=== PATIENT | female | born 1975 | race Caucasian/White ===

== ENCOUNTER → 2018-12-01 | Outpatient (CLI) | payer OTHER ==
--- NOTE | 2018-12-01 18:06 | US ---
EXAMINATION TYPE: US transvaginal DATE OF EXAM: 12/01/2018 COMPARISON: NONE CLINICAL HISTORY: 43-year-old female N94.6 DYSMENORRHEA. Heavy, painful cycles for the past 3 months, 4, para 4, history of 3 c-sections and tubal ligation TECHNIQUE: Transvaginal exam only per ordering physician Date of LMP: 11/24/2018 FINDINGS: EXAM MEASUREMENTS: Uterus: 9.2 x 6.6 x 7.5 cm Endometrial Stripe: 0.7 cm Right Ovary: not seen Left Ovary: 4.5 x 2.5 x 3.3 cm 1. Uterus: retroverted, heterogeneous 2. Endometrium: Mild to moderate fluid within the uterine cavity the stripes by 9 mm. 3. Right Ovary: not seen 4. Left Ovary: 2.4 x 1.9 x 2.7cm cyst 5. Bilateral Adnexa: wnl 6. Posterior cul-de-sac: wnl IMPRESSION: 1. Retroverted uterus. 2. Mild to moderate fluid within the uterine cavity, possible hemorrhagic fluid related to menses. Co nsider follow-up in 6-8 weeks to reassess. 3. Right ovary could not be visualized. 2.7 cm dominant follicle/functional cyst in the left ovary.
== END | disposition home or self-care (01) ==
LOC: RADUSWWP 12:59
PROVIDERS: ATTEND Obstetrics & Gynecology
DX: N83.202 Unspecified ovarian cyst, left side (principal); N85.4 Malposition of uterus; N85.8 Other specified noninflammatory disorders of uterus
CPT/HCPCS: 76830

== ENCOUNTER → 2018-12-16 | Outpatient (CLI) | payer OTHER ==
--- NOTE | 2018-12-16 12:10 | MM ---
Reason for exam: clinical finding. Last mammogram was performed 9 years and 9 months ago. Indicated problem(s): lump or thickening in the right breast. Physical Findings: Nurse Summary: palpable medial upper 0.5 x 0.5cm, non-tender (nurse ts). MG Diagnostic Mammo w CAD ARMANI Bilateral CC and MLO view(s) were taken. Prior study comparison: March 07, 2009, bilateral diagnostic digital mammog. The breast tissue is heterogeneously dense. This may lower the sensitivity of mammography. No suspicious abnormality. No significant new findings when compared with previous films. These results were verbally communicated with the patient and result sheet given to the patient on 12/16/18. ASSESSMENT: Negative, BI-RAD 1 RECOMMENDATION: Routine screening mammogram of both breasts in 1 year.
--- NOTE | 2018-12-16 12:12 | USB ---
Reason for exam: clinical finding. US Breast RT Right complete breast ultrasound includes all four quadrants, the retroareolar region and axilla. Finding demonstrates a 9 x 5 x 6mm oval, cystic lesion at 4 o'clock, a 11 x 3 x 7mm lobular, cystic lesion at 7 o'clock, a 6 x 4mm oval, cystic lesion at the posterior nipple and a 8 x 5 x 8mm mixed, hypoechoic lesion at middle sternum at BB that appears as sebaceous cyst. These results were verbally communicated with the patient and result sheet given to the patient on 12/16/18. ASSESSMENT: Benign, BI-RAD 2 RECOMMENDATION: Routine screening mammogram of both breasts in 1 year. Dermatology consult regarding sebaceous cyst excision recommended for sternal mass deep to the skin.
== END ==
LOC: RADMAMWWP 07:38
PROVIDERS: ATTEND Family Medicine
DX: N63.10 Unspecified lump in the right breast, unspecified quadrant (principal)
CPT/HCPCS: 77066

== ENCOUNTER → 2019-03-23 | Outpatient (CLI) | payer OTHER ==
[2019-03-23 10:36] LABS: Basophils % (A) 1 %; Eosinophils # (A) 0.1 k/uL (0-0.7); Eosinophils % (A) 1 %; HCT 46.3 % (34.0-46.0); HGB 15.5 gm/dL (11.4-16.0); Lymphocytes % (A) 22 %; MCH 30.7 pg (25.0-35.0); MCHC 33.5 g/dL (31.0-37.0); MCV 91.4 fL (80.0-100.0); Mean Platelet Volume 7.2; Monocytes # (A) 0.3 k/uL (0-1.0); Monocytes % (A) 7 %; Neutrophils % (A) 68 %; Platelet Count 273 k/uL (150-450); RBC 5.07 m/uL (3.80-5.40); RDW 13.1 % (11.5-15.5); WBC 4.4 k/uL (3.8-10.6)
[2019-03-23 10:48] LABS: ALT 31 U/L (9-52); AST 21 U/L (14-36); African American GFR (CKD) >90 (>60 ml/min/1.73 sqM); Alkaline Phosphatase 45 U/L (38-126); Anion Gap 8 mmol/L; Blood Urea Nitrogen 11 mg/dL (7-17); Calcium 9.1 mg/dL (8.4-10.2); Carbon Dioxide 26 mmol/L (22-30); Chloride 107 mmol/L (98-107); Glucose 92 mg/dL (74-99); Sodium 141 mmol/L (137-145); Total Bilirubin 0.6 mg/dL (0.2-1.3); Total Protein 6.5 g/dL (6.3-8.2)
--- NOTE | 2019-03-23 10:56 | US ---
EXAMINATION TYPE: US venous doppler duplex LE RT DATE OF EXAM: 03/23/2019 10:40 AM COMPARISON: NONE CLINICAL HISTORY: R06.02 SOB R05 cough. Muscle cramps right lower leg for 2 weeks SIDE PERFORMED: right TECHNIQUE: The lower extremity deep venous system is examined utilizing real time linear array sonog jessica with graded compression, doppler sonography and color-flow sonography. VESSELS IMAGED: External Iliac Vein (EIV) Common Femoral Vein Deep Femoral Vein Greater Saphenous Vein * Femoral Vein Popliteal Vein Small Saphenous Vein * Proximal Calf Veins (* superficial vessels) Right Leg: No evidence of DVT as visualized Grayscale, color doppler, spectral doppler imaging performed of the deep veins of the right lower ext remity. There is normal flow, compressibility, vascular waveforms. IMPRESSION: No ultrasound evidence for acute DVT in the right lower extremity.
--- NOTE | 2019-03-23 11:04 | CT ---
EXAMINATION TYPE: CT angio chest DATE OF EXAM: 03/23/2019 COMPARISON: NONE HISTORY: cough and shortness of breath CT DLP: 439.8 mGycm. Automated Exposure Control for Dose Reduction was Utilized. CONTRAST: CTA scan of the thorax is performed with IV Contrast, patient injected with 100 mL of Isovue 370, pul monary embolism protocol. MIP Images are created on CT scanner and reviewed. FINDINGS: LUNGS: The lungs are grossly clear, there is no concerning parenchymal mass or nodule identified. T here is no pleural effusion or pneumothorax seen. The tracheobronchial tree is patent. Mild parasept al emphysematous changes of the lungs. Scattered areas of subsegmental atelectasis, predominantly on the left. MEDIASTINUM: There is satisfactory enhancement of the pulmonary artery and its branches, there is no CT evidence for pulmonary embolism. There are no greater than 1 cm hilar or mediastinal lymph nodes. Heart is enlarged without pericardial effusion. Mild coronary artery calcifications are evident. No evidence of thoracic aortic dissection or aneurysm. OTHER: Pneumobilia is seen with cholecystectomy. Correlate for any recent ERCP or recent cholecystect farhana. The liver is elongated extending into the left upper quadrant. Splenule is seen near the splenic hilum. Minimal multilevel degenerative changes of the spine. IMPRESSION: 1. No evidence of pulmonary embolus. No evidence of thoracic aortic dissection or aneurysm. 2. Pneumobilia. Correlate for recent ERCP or recent cholecystectomy. 3. Scattered areas of subsegmental atelectasis.
== END | disposition home or self-care (01) ==
LOC: RADCTMAIN 09:21
PROVIDERS: ATTEND Nurse Practitioner Family
DX: J98.11 Atelectasis (principal); M79.661 Pain in right lower leg
CPT/HCPCS: 80053; 84443; 85025; 93971; 71275; 36415; Q9967

== ENCOUNTER 2019-05-02 15:01 | Emergency (ER) | payer OTHER ==
[2019-05-02 15:22] VITALS: BP 126/84; PULSE 86; RESP 18; TEMP 97.9
[2019-05-02] MEDS ORDERED: KETOROLAC 30 MG/ML 1 ML VIAL IM STA (15:58)
[2019-05-02] MEDS ORDERED: LIDOCAINE 1% INJ 10MG/ML (20 ML MDV) SQ ONE (15:58)
[2019-05-02] MEDS ORDERED: SODIUM CHLORIDE 0.9% IRRIG 1,000 ML BTL IRRIGATION ONE (15:59)
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
== END 2019-05-02 18:12 | disposition home or self-care (01) ==
LOC: EC 15:01
DX: S91.312A Laceration without foreign body, left foot, initial encounter (principal); W26.9XXA Contact with unspecified sharp object(s), initial encounter
CPT/HCPCS: 99282; 12002; 96372; J2001; J1885

== ENCOUNTER → 2019-05-26 | Outpatient (CLI) | payer OTHER | LOC: CPPFTMAIN 12:25 | PROVIDERS: ATTEND Family Medicine | DX: J45.20 Mild intermittent asthma, uncomplicated (principal); R05 Cough | CPT/HCPCS: 94060; 94726; 94729 ==

== ENCOUNTER → 2019-10-08 | Outpatient (CLI) | payer OTHER ==
--- NOTE | 2019-10-08 13:01 | XR ---
EXAMINATION TYPE: XR chest 2V DATE OF EXAM: 10/08/2019 COMPARISON: Prior chest x-ray 12/07/2010 HISTORY: Acute bronchitis TECHNIQUE: Frontal and lateral views of the chest are obtained. FINDINGS: There is no focal air space opacity, pleural effusion, or pneumothorax seen. The cardiac silhouette size is within normal limits. The osseous structures are intact. There is bronchial wall thickening. IMPRESSION: Bronchial wall thickening in keeping with patient's history of bronchitis or possible re active airways disease.
== END | disposition home or self-care (01) ==
LOC: RADXRMAIN 10:43
PROVIDERS: ATTEND Family Medicine
DX: J20.9 Acute bronchitis, unspecified (principal)
CPT/HCPCS: 71046

== ENCOUNTER 2020-04-12 07:53 | Emergency (ER) | payer OTHER ==
[2020-04-12 07:58] VITALS: RESP 18; TEMP 98.3
[2020-04-12] MEDS ORDERED: cefTRIAXone 1,000 MG VIAL (IM USE) IM STA (08:19)
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
[2020-04-12] MEDS ORDERED: LIDOCAINE 1% INJ 10MG/ML (20 ML MDV) SQ ONE (08:24)
[2020-04-12 08:33] VITALS: BP 111/75; PULSE 68
== END 2020-04-12 08:29 | disposition home or self-care (01) ==
LOC: EC 07:53
DX: T24.031A Burn of unspecified degree of right lower leg, initial encounter (principal); T25.011A Burn of unspecified degree of right ankle, initial encounter; T31.0 Burns involving less than 10% of body surface; L03.115 Cellulitis of right lower limb; Z86.14 Personal history of Methicillin resistant Staphylococcus aureus infection; X16.XXXA Contact with hot heating appliances, radiators and pipes, initial encounter; Y92.89 Other specified places as the place of occurrence of the external cause
CPT/HCPCS: 99283; 96372 ×2; J2001; J0696

== ENCOUNTER 2020-04-20 15:31 | Emergency (ER) | payer OTHER ==
[2020-04-20 15:53] VITALS: BP 144/89; PULSE 76; RESP 18; TEMP 98.6
--- NOTE | 2020-04-20 16:54 | US ---
EXAMINATION TYPE: US venous doppler duplex LE RT DATE OF EXAM: 04/20/2020 4:39 PM COMPARISON: NONE CLINICAL HISTORY: foot edema unilateral. right foot edema SIDE PERFORMED: right TECHNIQUE: The lower extremity deep venous system is examined utilizing real time linear array sonog jessica with graded compression, doppler sonography and color-flow sonography. VESSELS IMAGED: External Iliac Vein (EIV) Common Femoral Vein Deep Femoral Vein Greater Saphenous Vein * Femoral Vein Popliteal Vein Small Saphenous Vein * Proximal Calf Veins (* superficial vessels) Right Leg: no evidence of DVT IMPRESSION: No evidence of deep vein thrombosis in the right leg.
[2020-04-20] MEDS ORDERED: CEPHALEXIN 500MG STARTER PACK 4 CAP BTL PO STA (16:57)
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
== END 2020-04-20 17:08 | disposition home or self-care (01) ==
LOC: EC 15:31
DX: T24.031A Burn of unspecified degree of right lower leg, initial encounter (principal); L03.115 Cellulitis of right lower limb; Z86.14 Personal history of Methicillin resistant Staphylococcus aureus infection
CPT/HCPCS: 99283

== ENCOUNTER 2020-08-15 12:48 | Emergency (ER) | payer OTHER ==
[2020-08-15 13:09] VITALS: RESP 18
--- NOTE | 2020-08-15 13:53 | ED ---
Extremity Problem HPI - General Chief complaint: Extremity Problem,Nontraumatic Stated complaint: L Leg Swelling Time Seen by Provider: 08/15/20 13:38 Source: patient, RN notes reviewed Mode of arrival: ambulatory Limitations: no limitations - History of Present Illness Initial comments: 45 female presented emergency from chief complaint of left leg pain. Patient states that she noticed some discomfort, pressure and mild left knee swelling no redness no fevers chills known that she's noted noted injury. Patient states she was just worried about some swelling. Patient has no chest pain or shortness breath no history DVT. Patient offers no other complaints. - Related Data Previous Rx's Medication Instructions Recorded Cephalexin [Keflex] 500 mg PO Q6HR 3 Days #20 cap 05/02/19 Cephalexin [Keflex] 500 mg PO Q6H 10 Days #40 cap 04/12/20 SILVER sulfADIAZINE CREAM 1 applic TOPICAL BID 10 Days #30 04/12/20 [Silvadene Cream] gram Cephalexin [Keflex] 500 mg PO Q6HR 7 Days #28 cap 04/20/20 Ibuprofen [Motrin] 600 mg PO Q8HR PRN #20 tab 08/15/20 Allergies Allergy/AdvReac Type Severity Reaction Status Date / Time No Known Allergies Allergy Verified 08/15/20 13:09 Review of Systems ROS Statement: Those systems with pertinent positive or pertinent negative responses have been documented in the HPI. ROS Other: All systems not noted in ROS Statement are negative. Past Medical History Past Medical History: No Reported History History of Any Multi-Drug Resistant Organisms: MRSA Date of last positivie culture/infection: 05/31/16 MDRO Source:: leg Past Surgical History: No Surgical Hx Reported Past Psychological History: Depression Smoking Status: Never smoker Past Alcohol Use History: None Reported Past Drug Use History: None Reported General Exam Limitations: no limitations General appearance: alert, in no apparent distress Head exam: Present: atraumatic, normocephalic, normal inspection Eye exam: Present: normal appearance, PERRL, EOMI. Absent: scleral icterus, conjunctival injection, periorbital swelling ENT exam: Present: normal exam, mucous membranes moist Neck exam: Present: normal inspection, full ROM. Absent: tenderness, meningismus, lymphadenopathy Respiratory exam: Present: normal lung sounds bilaterally. Absent: respiratory distress, wheezes, rales, rhonchi, stridor Cardiovascular Exam: Present: regular rate, normal rhythm, normal heart sounds. Absent: systolic murmur, diastolic murmur, rubs, gallop, clicks Extremities exam: Present: other (Left knee there is mild superior patellar swelling, no erythema no increased warmth pulses are equal lower extremity there is mild left calf swelling with no tenderness) Neurological exam: Present: alert, oriented X3, CN II-XII intact Skin exam: Present: warm, dry, intact, normal color. Absent: rash Course Vital Signs 08/15/20 13:07 Temperature 98.5 F Pulse Rate 101 H Respiratory 18 Rate Blood Pressure 121/84 O2 Sat by Pulse 98 Oximetry Medical Decision Making - Medical Decision Making Ultrasound was unremarkable x-ray shows suprapatellar effusion, Versed. Patient's discharged with anti-inflammatories return parameters were discussed. Disposition Clinical Impression: Left knee pain, Effusion, left knee Disposition: HOME SELF-CARE Condition: Stable Instructions (If sedation given, give patient instructions): Knee Pain (ED), Swollen Knee Joint (ED) Additional Instructions: Please return to the Emergency Department if symptoms worsen or any other concerns. Prescriptions: Ibuprofen [Motrin] 600 mg PO Q8HR PRN #20 tab PRN Reason: Pain Is patient prescribed a controlled substance at d/c from ED?: No Referrals: Carlito Gutierres Jr, DO [Primary Care Provider] - 1-2 days Antoine Bai MD [STAFF PHYSICIAN] - 1-2 days Time of Disposition: 15:15
--- NOTE | 2020-08-15 14:43 | US ---
EXAMINATION TYPE: US venous doppler duplex LE LT DATE OF EXAM: 08/15/2020 2:31 PM COMPARISON: None. CLINICAL HISTORY: pain. No redness or swelling. No hx DVT. Not on blood thinners. SIDE PERFORMED: Left TECHNIQUE: The lower extremity deep venous system is examined utilizing real time linear array sonog jessica with graded compression, doppler sonography and color-flow sonography. VESSELS IMAGED: Common Femoral Vein Deep Femoral Vein Greater Saphenous Vein * Femoral Vein Popliteal Vein Small Saphenous Vein * Proximal Calf Veins (* superficial vessels) Left Leg: Negative for DVT Grayscale, color doppler, spectral doppler imaging performed of the deep veins of the left lower extr emity. There is normal flow, compressibility, vascular waveforms. IMPRESSION: No ultrasound evidence for acute DVT in the left lower extremity.
--- NOTE | 2020-08-15 14:56 | XR ---
EXAMINATION TYPE: XR knee complete LT DATE OF EXAM: 08/15/2020 CLINICAL HISTORY: Swelling and pain. TECHNIQUE: Three views of the left knee are obtained. COMPARISON: None. FINDINGS: There is no acute fracture/dislocation evident in left knee. The tri-compartment joint sp aces appear within normal limits. Increased density suprapatellar bursa consistent with small to mode rate size joint effusion. IMPRESSION: As above.
[2020-08-15 15:43] VITALS: BP 113/85; PULSE 84; TEMP 98
== END 2020-08-15 15:38 | disposition home or self-care (01) ==
LOC: EC 12:48
DX: M25.462 Effusion, left knee (principal); Z86.14 Personal history of Methicillin resistant Staphylococcus aureus infection
CPT/HCPCS: 99284

== ENCOUNTER 2022-02-12 06:28 | Emergency (ER) | payer OTHER ==
[2022-02-12 06:37] VITALS: BP 122/74; PULSE 67; RESP 16; TEMP 97.8
--- NOTE | 2022-02-12 06:50 | ED ---
Extremity Problem HPI - General Chief complaint: Extremity Problem,Nontraumatic Stated complaint: Foot Pain Time Seen by Provider: 02/12/22 06:29 Source: patient, RN notes reviewed Mode of arrival: ambulatory Limitations: no limitations - History of Present Illness Initial comments: This a 46-year-old female presents emergency Department with chief complaint left foot pain. Patient states been bothersome or last week. Patient has pain on the dorsal aspect her foot distal to her left ankle. Patient denies any known trauma but states she's been doing some extra walking has been wearing sandals. She states she has pain when she plantar and dorsiflexors. Patient has a paresthesias no fevers chills no calf or ankle pain. - Related Data Previous Rx's Medication Instructions Recorded Cephalexin [Keflex] 500 mg PO Q6HR 3 Days #20 cap 05/02/19 Cephalexin [Keflex] 500 mg PO Q6H 10 Days #40 cap 04/12/20 SILVER sulfADIAZINE CREAM 1 applic TOPICAL BID 10 Days #30 04/12/20 [Silvadene Cream] gram Cephalexin [Keflex] 500 mg PO Q6HR 7 Days #28 cap 04/20/20 Ibuprofen [Motrin] 600 mg PO Q8HR PRN #20 tab 08/15/20 Ibuprofen [Motrin] 600 mg PO Q8HR PRN #20 tab 02/12/22 Allergies Allergy/AdvReac Type Severity Reaction Status Date / Time No Known Allergies Allergy Verified 02/12/22 06:34 Review of Systems ROS Statement: Those systems with pertinent positive or pertinent negative responses have been documented in the HPI. ROS Other: All systems not noted in ROS Statement are negative. Past Medical History Past Medical History: No Reported History History of Any Multi-Drug Resistant Organisms: MRSA Date of last positivie culture/infection: 05/31/16 MDRO Source:: leg Past Surgical History: Back Surgery, Section Past Psychological History: Anxiety, Depression Smoking Status: Never smoker Past Alcohol Use History: None Reported Past Drug Use History: None Reported General Exam Limitations: no limitations General appearance: alert, in no apparent distress Head exam: Present: atraumatic, normocephalic, normal inspection Respiratory exam: Present: normal lung sounds bilaterally. Absent: respiratory distress, wheezes, rales, rhonchi, stridor Cardiovascular Exam: Present: regular rate, normal rhythm, normal heart sounds. Absent: systolic murmur, diastolic murmur, rubs, gallop, clicks Extremities exam: Present: other (Left foot there is tenderness over the prox imal foot just distal to the malleoli region, there is mild swelling no erythema neurovascular intact there is pain with dorsi and plantar flexion,) Skin exam: Present: warm, dry, intact, normal color. Absent: rash Course Vital Signs 02/12/22 06:34 Temperature 97.8 F Pulse Rate 67 Respiratory 16 Rate Blood Pressure 122/74 O2 Sat by Pulse 95 Oximetry Medical Decision Making - Medical Decision Making This a 46 show female presents emergency from for left foot pain. Patient does not remember any injury but appears to have a left foot sprain, tendinitis type injury. She was started on anti-inflammatories, ice and elevation she'll follow-up with orthopedics. Return parameters were discussed. Disposition Clinical Impression: Tendinitis of left foot, Sprain of left foot Disposition: TRANSFER TO PSYCH HOSP/UNIT Condition: Stable Instructions (If sedation given, give patient instructions): Foot Sprain (ED) Additional Instructions: Please return to the Emergency Department if symptoms worsen or any other concerns. Prescriptions: Ibuprofen [Motrin] 600 mg PO Q8HR PRN #20 tab PRN Reason: Pain Is patient prescribed a controlled substance at d/c from ED?: No Referrals: Carlito Gutierres Jr, DO [Primary Care Provider] - 1-2 days Timothy Cabrera MD [Medical Doctor] - 1-2 days Time of Disposition: 08:03
--- NOTE | 2022-02-12 08:01 | XR ---
EXAM: XR Left Foot Complete, 3 or More Views CLINICAL HISTORY: ITS.REASON XR Reason: pain TECHNIQUE: Frontal, lateral and oblique views of the left foot. COMPARISON: No relevant prior studies available. FINDINGS: Bones/joints: Unremarkable. No acute fracture. No dislocation. Soft tissues: Unremarkable. No radiopaque foreign body. IMPRESSION: Normal left foot x-rays.
[2022-02-12] MEDS ORDERED: ACET/COD 300 MG/30 MG STARTER PACK 6 TAB BTL PO STA (08:02)
== END 2022-02-12 08:18 ==
LOC: EC 06:28
DX: S93.602A Unspecified sprain of left foot, initial encounter (principal); M77.8 Other enthesopathies, not elsewhere classified; R20.2 Paresthesia of skin; F41.9 Anxiety disorder, unspecified; F32.A Depression, unspecified
CPT/HCPCS: 99284

== ENCOUNTER → 2023-09-11 | Outpatient (CLI) | payer OTHER ==
--- NOTE | 2023-09-12 20:19 | MM ---
Reason for Exam: Screening (asymptomatic). Last mammogram was performed 4 year(s) and 9 month(s) ago. Patient History: Menarche at age 15. First Full-Term at age 16. Last menstrual period: 08/19/2023 Risk Values: Ana Lilia 5 year model risk: 0.6%. NCI Lifetime model risk: 6.1%. Tissue Density: The breast tissue is heterogeneously dense. This may lower the sensitivity of mammography. Findings: Analyzed By CAD. No priors available for comparison purposes. On the right, within the posterior upper outer quadrant, there is nodularity which may represent a low axillary tail lymph node. Further evaluation recommended given the lack of comparison studies. On the left, superior asymmetric density on the MLO view may represent superimposition shadow but further evaluation is recommended. Otherwise, no suspicious microcalcification or other discrete abnormality is seen. Overall Assessment: Incomplete: need additional imaging evaluation, BI-RAD 0 Management: Special View Mammogram of both breasts. Diagnostic Breast Ultrasound of both breasts. . [facility] will attempt to contact patient to return for supplemental views and ultrasound if indicated. Electronically signed and approved by: Law Stoner M.D. Radiologist
== END | disposition home or self-care (01) ==
LOC: RADMAMWWP 13:53 → MERGE 13:53
PROVIDERS: ATTEND Family Medicine
DX: Z12.31 Encounter for screening mammogram for malignant neoplasm of breast (principal)
CPT/HCPCS: 77067

== ENCOUNTER → 2023-09-13 | Outpatient (CLI) | payer OTHER ==
[2023-09-13 11:17] LABS: Basophils # (A) 0.04 X 10*3/uL (0.00-0.10); Basophils % (A) 0.6 %; Eosinophils # (A) 0.11 X 10*3/uL (0.04-0.35); Eosinophils % (A) 1.6 %; HCT 43.3 % (37.2-46.3); HGB 13.9 g/dL (12.0-15.0); Lymphocytes # (A) 0.74 X 10*3/uL (0.90-5.00); Lymphocytes % (A) 10.9 %; MCH 26.8 pg (27.0-32.0); MCHC 32.1 g/dL (32.0-37.0); MCV 83.4 FL (80.0-97.0); Mean Platelet Volume 11.4 FL (9.5-12.2); Monocytes # (A) 0.66 X 10*3/uL (0.20-1.00); Monocytes % (A) 9.8 %; NRBC Per 100 WBC 0 X 10*3/uL (0.00-0.01); Neutrophils # (A) 5.19 X 10*3/uL (1.80-7.70); Neutrophils % (A) 76.8 %; Platelet Count 304 X 10*3/uL (140-440); RBC 5.19 X 10*6/uL (4.10-5.20); RDW 13.5 % (11.5-14.5); WBC 6.76 X 10*3/uL (4.50-10.00)
[2023-09-13 11:36] LABS: ALT 69 U/L (8-44); AST 38 U/L (13-35); Albumin 4.3 g/dL (3.8-4.9); Albumin/Globulin Ratio 1.87 Ratio (1.60-3.17); Alkaline Phosphatase 75 U/L (41-126); Blood Urea Nitrogen 10.7 mg/dL (9.0-27.0); Chloride 107 mmol/L (96-109); Chol/HDL Ratio 5.22 Ratio; Globulin 2.3 g/dL (1.6-3.3); Glucose 116 mg/dL (70-110); LDL Cholesterol,Calculated 115.8 mg/dL (0.0-131.0); Potassium 4.2 mmol/L (3.5-5.5); Sodium 141 mmol/L (135-145); Total Bilirubin 0.4 mg/dL (0.3-1.2); Total Protein 6.6 g/dL (6.2-8.2)
== END | disposition home or self-care (01) ==
LOC: LABWHC1 07:44
PROVIDERS: ATTEND Family Medicine
DX: Z00.00 Encounter for general adult medical examination without abnormal findings (principal); G47.00 Insomnia, unspecified
CPT/HCPCS: 36415; 80053; 80061; 84443; 85025

== ENCOUNTER → 2023-09-18 | Outpatient (CLI) | payer OTHER ==
--- NOTE | 2023-09-18 13:44 | USB ---
Reason for Exam: Additional evaluation requested from abnormal screening. Patient History: Menarche at age 15. First Full-Term at age 16. Risk Values: Ana Lilia 5 year model risk: 0.6%. NCI Lifetime model risk: 6.1%. Technique: Method: Targeted. Prior Study Comparison: 03/07/2009 Bilateral Diagnostic Mammogram, [facility]. 12/16/2018 Bilateral Diagnostic Mammogram, [facility]. 09/11/2023 Bilateral MG screening mammo w CAD, [facility]. Findings: The axilla of the right breast was scanned. At the site of clinical concern there is a normal-appearing lymph node measuring 1.3 x 2.4 cm. No solid masses identified otherwise.. Overall Assessment: Benign, BI-RAD 2 Management: Screening Mammogram of both breasts in 1 year. A clinical breast exam by your physician is recommended on an annual basis and results should be correlated with mammographic findings. This exam should not preclude additional follow-up of suspicious palpable abnormalities. Results were given to the patient verbally at the time of exam. Electronically signed and approved by: Mitch Hoskins M.D. Radiologis
--- NOTE | 2023-09-20 11:27 | MM ---
Reason for Exam: Follow-up at short interval from prior study. Last screening mammogram was performed less than 1 month ago. Patient History: Menarche at age 15. First Full-Term at age 16. Risk Values: Ana Lilia 5 year model risk: 0.6%. NCI Lifetime model risk: 6.1%. Prior Study Comparison: 12/16/2018 Bilateral Diagnostic Mammogram, [facility]. 09/11/2023 Bilateral MG screening mammo w CAD, [facility]. Tissue Density: The breast tissue is heterogeneously dense. This may lower the sensitivity of mammography. Findings: Analyzed By CAD. Nodular density upper outer quadrant right breast. Ultrasound is recommended. Overall Assessment: Incomplete: need additional imaging evaluation, BI-RAD 0 Management: Diagnostic Breast Ultrasound of the right breast. . Results were given to the patient verbally at the time of exam. Patient should continue monthly self-breast exams. A clinical breast exam by your physician is recommended on an annual basis. This exam should not preclude additional follow-up of suspicious palpable abnormalities. Note on Ana Lilia scores and lifetime risk: 1. A Ana Lilia score greater than 3% is considered moderate risk. If this is the case, consider specialist referral to assess eligibility for a risk reducing agent. 2. If overall lifetime risk for the development of breast cancer is 20% or higher, the patient may qualify for future screening with alternating mammogram and breast MRI. Electronically signed and approved by: Mitch Hoskins M.D. Radiologis
== END | disposition home or self-care (01) ==
LOC: RADMAMWWP 12:52
PROVIDERS: ATTEND Family Medicine
DX: R92.8 Other abnormal and inconclusive findings on diagnostic imaging of breast (principal)
CPT/HCPCS: 77066; 76642; G0279; 77062

== ENCOUNTER → 2023-10-08 | Outpatient (CLI) | payer OTHER ==
--- NOTE | 2023-10-10 18:29 | CT ---
EXAMINATION TYPE: CT abdomen pelvis wo/w con CT DLP: 2449.1 mGycm, Automated exposure control for dose reduction was used. DATE OF EXAM: 10/08/2023 1:44 PM COMPARISON: CT abdomen pelvis w con 08/30/2023, and CT without contrast 08/14/2023 CLINICAL INDICATION:Female, 48 years old with history of R10.31 RIGHT LOWER QUADRANT PAIN R11.2 R19.7 ; RLQ pain, nausea, weight loss TECHNIQUE: Axial CT of the abdomen and pelvis performed, without and with IV contrast. Oral contrast was also used. Sagittal and coronal reformats were created on a separate workstation. Contrast used:100 mL of Isovue 300 without and with IV Contrast, (none if empty) Oral contrast used: with Oral Contrast (none if empty) FINDINGS: LOWER CHEST: No acute abnormality. Small emphysematous bleb at the left lung base. ABDOMEN LIVER AND BILIARY: Status post cholecystectomy. Mild/moderate central pneumobilia, slightly increased from prior. Biliary tree is nondilated. No evidence of hepatic mass lesion. Portal veins are enhanci ng. PANCREAS: Unremarkable. SPLEEN: Unremarkable spleen. Stable adjacent splenule. ADRENAL GLANDS: Stable, no evidence of mass.. KIDNEYS AND URETERS: No visible renal calculi. Kidneys are enhancing symmetrically without evidence o f mass. Normal contrast excretion, without hydronephrosis. PELVIS BLADDER: Incompletely distended but grossly unremarkable. REPRODUCTIVE: Uterus again appears somewhat heterogeneous without endometrial stripe visualized. Jovita lar appearance of cystic structures in the lower uterus suggesting nabothian cysts. Adnexa are unrema rkable. ABDOMEN & PELVIS STOMACH AND BOWEL: Contrast traverses the stomach and small bowel loops without evidence of obstructi on. Enteric contrast does not yet quite reach the colon. There is fatty infiltration of the ileocecal valve. Heterogeneous stool is seen in the cecum and proximal right colon, which is maximally dilated to 6.5 cm. There is soft tissue thickening and enhancement at the base of the appendix and continuin g distally. The appendix appears inflamed and distended up to 1.4 cm diameter with mild periappendice al fat stranding. In the mid ascending colon, there appears to be an enhancing lesion with an apple c ore type appearance and associated luminal narrowing likely causing the distention of the proximal ri ght colon/cecum. This lesion measures up to 2.7 x 2.6 cm axially and 2.7 cm craniocaudally. Farther d istally, there is mild/moderate stool seen scattered throughout nondilated colon. Some segments of co kathryn are nondistended and not well assessed, however no additional abnormality is seen. PERITONEUM/RETROPERITONEUM: No evidence of pneumoperitoneum or free fluid. VASCULATURE: Mild atherosclerotic calcifications are present without evidence of aortic aneurysm. Po rtal veins are enhancing. Splenic vein is patent. Unremarkable IVC. LYMPH NODES: A few mildly prominent mesenteric nodes are seen in the right lower quadrant, up to 1 cm axial image 45 series 3. No distant or bulky lymphadenopathy is seen. SOFT TISSUE/ABDOMINAL WALL: Unremarkable MUSCULOSKELETAL: Mild diffuse degenerative changes. Postoperative changes including bilateral pedicle screws and disc space prosthesis again noted L5-S1, unchanged from prior. No acute osseous abnormali ty is seen. There is a 0.7 cm sclerotic focus within the anterior L3 vertebral body, stable since . No destructive bone lesion is seen. IMPRESSION: 1. Enhancing lesion with apple core appearance causing luminal narrowing in the ascending colon, hig hly concerning for neoplasm. There is mild associated distention of the colon proximally. 2. Appearance of the appendix concerning for acute appendicitis, with malignant involvement not excl udable. 3. Mildly prominent right lower quadrant lymph nodes, could be reactive but early metastases are not excluded. 4. Mild/moderate pneumobilia, slightly increased from prior. 5. Other stable chronic and likely incidental findings as above. Critical findings (#1 and #2) communication attempts to reach Ash Saleh MD on his cell phone (number provided to me by the ER) on 10/10/2023 6:34 PM by Chris Mccarthy M.D. Both a voicemail and text message were sent, currently awaiting callback.
== END | disposition home or self-care (01) ==
LOC: RADCTMAIN 11:34
PROVIDERS: ATTEND Family Medicine
DX: K63.89 Other specified diseases of intestine (principal); R11.2 Nausea with vomiting, unspecified; R19.7 Diarrhea, unspecified; R63.4 Abnormal weight loss
CPT/HCPCS: 74178; Q9967

== ENCOUNTER 2023-10-12 14:19 | Emergency (ER) | payer OTHER ==
[2023-10-12 14:55] VITALS: BP 126/84; PULSE 93; RESP 18; TEMP 98.3
--- NOTE | 2023-10-12 15:08 | ED ---
General Adult HPI - General Chief complaint: Abdominal Pain Stated complaint: Abd pain Time Seen by Provider: 10/12/23 14:24 Source: patient Mode of arrival: ambulatory Limitations: no limitations - History of Present Illness Initial comments: Dictation was produced using [employer] dictation software. please excuse any grammatical, word or spelling errors. Chief Complaint: 48-year-old female presents to the ER for abnormal CT History of Present Illness: Patient is a 48-year-old female presents emergency department for abnormal outpatient CT. Patient's been in the hospital for bowel obstructions over the last 2 months. She had a outpatient CT scan performed 2 days ago. Patient's primary care doctor was contacted. Primary care doctor called patient told her to come to the ER. Spoke with Dr. Gutierres regarding findings on the CT that was highly suspicious for mass. Patient denies any fever, chills or night sweats. She has had a constant pain in her right lower quadrant for the last month and a half. States that the pain has not changed s linh then. The ROS documented in this emergency department record has been reviewed and confirmed by me. Those systems with pertinent positive or negative responses have been documented in the HPI. All other systems are other negative and/or noncontributory. - Related Data Home Medications Medication Instructions Recorded Confirmed QUEtiapine FUMARATE [SEROquel XR] 300 mg PO HS 08/30/23 08/30/23 lamoTRIgine [LaMICtal Xr] 25 mg PO DAILY 08/30/23 08/30/23 Previous Rx's Medication Instructions Recorded Cephalexin [Keflex] 500 mg PO Q6HR 3 Days #20 cap 05/02/19 Cephalexin [Keflex] 500 mg PO Q6H 10 Days #40 cap 04/12/20 SILVER sulfADIAZINE CREAM 1 applic TOPICAL BID 10 Days #30 04/12/20 [Silvadene Cream] gram Cephalexin [Keflex] 500 mg PO Q6HR 7 Days #28 cap 04/20/20 Ibuprofen [Motrin] 600 mg PO Q8HR PRN #20 tab 08/15/20 Ibuprofen [Motrin] 600 mg PO Q8HR PRN #20 tab 02/12/22 Pantoprazole Sodium 40 mg PO DAILY #30 tab 09/01/23 Sucralfate [Carafate] 1 gm PO ACHS #120 tab 09/01/23 Allergies Allergy/AdvReac Type Severity Reaction Status Date / Time No Known Allergies Allergy Verified 10/12/23 14:29 Review of Systems ROS Statement: Those systems with pertinent positive or pertinent negative responses have been documented in the HPI. ROS Other: All systems not noted in ROS Statement are negative. Past Medical History Past Medical History: No Reported History Additional Past Medical History / Comment(s): Asthma History of Any Multi-Drug Resistant Organisms: MRSA, None Reported Date of last positivie culture/infection: 05/31/16 MDRO Source:: leg Past Surgical History: Back Surgery, Section, Cholecystectomy Additional Past Surgical History / Comment(s): back surgery 2013, Past Anesthesia/Blood Transfusion Reactions: No Reported Reaction Past Psychological History: Anxiety, Bipolar, Depression Smoking Status: Never smoker Past Alcohol Use History: None Reported Past Drug Use History: None Reported General Exam - General Exam Comments Initial Comments: PHYSICAL EXAM: General Impression: Alert and oriented x3, not in acute distress HEENT: Normocephalic atraumatic, extra-ocular movements intact, pupils equal and reactive to light bilaterally, mucous membranes moist. Cardiovascular: Heart regular rate and rhythm Chest: Able to complete full sentences, no retractions, no tachypnea Abdomen: abdomen soft, no mild tenderness to the right lower quadrant r, non-distended, no organomegaly Musculoskeletal: Pulses present and equal in all extremities, no peripheral edema Motor: no focal deficits noted Neurological: CN II-XII grossly intact, no focal motor or sensory deficits noted Skin: Intact with no visualized rashes Psych: Normal affect and mood Limitations: no limitations Course Vital Signs 10/12/23 14:27 Temperature 98.3 F Pulse Rate 93 Respiratory 18 Rate Blood Pressure 126/84 O2 Sat by Pulse 96 Oximetry Medical Decision Making - Medical Decision Making Was pt. sent in by a medical professional or institution (, PA, SOFTWARE SUPPORT ANALYST, urgent care, hospital, or residential...) When possible be specific @ -Sent in by PCP Did you speak to anyone other than the patient for history (EMS, parent, family, police, friend...)? What history was obtained from this source @ -Case discussed with Dr. Gutierres from primary care physician's office Did you review nursing and triage notes (agree or disagree)? Why? @ -I reviewed and agree with nursing and triage notes Were old charts reviewed (outside hosp., previous admission, EMS record, old EKG, old radiological studies, urgent care reports/EKG's, residential records)? Report findings @ -CT imaging from 2 days were reviewed showing likely cancerous process Differential Diagnosis (chest pain, altered mental status, abdominal pain women, abdominal pain men, vaginal bleeding, musculoskeletal, weakness, fever, dyspnea, syncope, headache, dizziness, GI bleed, back pain, seizure, CVA, palpatations, mental health)? @ -Differential Abdominal Pain Women: Appendicitis, Cholecystitis, diverticulosis, ischemic bowel, pancreatitis, hepatitis, UTI, gastroenteritis, AAA, incarcerated hernia, bowel obstruction, constipation, inflammatory bowel, hepatitis, peptic ulcer disease, splenic infarction, perforated viscus, vulvitis, ovarian torsion, PID, kidney stone, placenta abruption, this is not meant to be an all-inclusive list EKG interpreted by me (3pts min.). @ -None done X-rays interpreted by me (1pt min.). @ -None done CT interpreted by me (1pt min.). @ -None done U/S interpreted by me (1pt. min.). @ -None done What testing was considered but not performed or refused? (CT, X-rays, U/S, labs)? Why? @ -None What meds were considered but not given or refused? Why? @ -None Did you discuss the management of the patient with other professionals (professionals i.e. , PA, SOFTWARE SUPPORT ANALYST, lab, RT, psych nurse, social service technician, efficiency expert, teacher, industrial relations officer, medical case worker)? Give summary @ -No Was smoking cessation discussed for >3mins.? @ -No Was critical care preformed (if so, how long)? @ -No Were there social determinants of health that impacted care today? How? (Homelessness, low income, unemployed, alcoholism, drug addiction, transportation, low edu. Level, literacy, decrease access to med. care, assisted, rehab)? @ -No Was there de-escalation of care discussed even if they declined (Discuss DNR or withdrawal of care, Hospice)? DNR status @ -No What co-morbidities impacted this encounter? (DM, HTN, Smoking, COPD, CAD, Cancer, CVA, ARF, Chemo, Hep., AIDS, mental health diagnosis, sleep apnea, morbid obesity)? @ -None Was patient admitted / discharged? Hospital course, mention meds given and route, prescriptions, significant lab abnormalities, going to OR and other pertinent info. @ -40-year-old female presents to the emergency department for abnormal outpatient CT. CT scan was performed 2 days ago. Vital signs upon arrival are within acceptable limits. Patient no acute distress. Patient's abdomen is soft nonsurgical. Case was discussed with general surgery who requested lab work for evaluation of possible acute appendicitis. She had no white count. Labs are otherwise unremarkable. Patient stable at the bedside. Her abdominal ex amination is benign. Case was rediscussed with general surgery felt that patient can be discharged but must follow-up at tertiary care center for likely colon cancer treatment. Patient has appointment with her primary care doctor on Saturday. Patient agreeable for discharge. Dr. Gutierres was notified of recommendations by general surgery and is also in agreement with plan. Undiagnosed new problem with uncertain prognosis? @ -No Drug Therapy requiring intensive monitoring for toxicity (Heparin, Nitro, Insulin, Cardizem)? @ -No Were any procedures done? @ -No Diagnosis/symptom? Acute, or Chronic, or Acute on Chronic? Uncomplicated (without systemic symptoms) or Complicated (systemic symptoms)? @ -Colon cancer, new diagnosis Side effects of treatment? @ -No Exacerbation, Progression, or Severe Exacerbation? @ -No Poses a threat to life or bodily function? How? (Chest pain, [place], [place], pneumonia, PE, COPD, DKA, ARF, appy, cholecystitis, CVA, Diverticulitis, Homicidal, Suicidal, threat to staff... and all critical care pts) @ -yes - Lab Data Result diagrams: 10/12/23 14:50 10/12/23 14:50 Lab Results 10/12/23 10/12/23 10/12/23 Range/Units 14:50 14:50 14:50 WBC 7.2 (3.8-10.6) k/uL RBC 5.08 (3.80-5.40) m/uL Hgb 13.8 (11.4-16.0) gm/dL Hct 42.7 (34.0-46.0) % MCV 83.9 (80.0-100.0) fL MCH 27.2 (25.0-35.0) pg MCHC 32.4 (31.0-37.0) g/dL RDW 14.2 (11.5-15.5) % Plt Count 324 (150-450) k/uL MPV 7.6 Neutrophils % 73 % Lymphocytes % 14 % Monocytes % 9 % Eosinophils % 2 % Basophils % 0 % Neutrophils # 5.2 (1.3-7.7) k/uL Lymphocytes # 1.0 (1.0-4.8) k/uL Monocytes # 0.6 (0-1.0) k/uL Eosinophils # 0.1 (0-0.7) k/uL Basophils # 0.0 (0-0.2) k/uL PT 9.5 L (10.0-12.5) sec INR 0.8 (<1.2) APTT 22.9 (22.0-30.0) sec Sodium 136 L (137-145) mmol/L Potassium 4.3 (3.5-5.1) mmol/L Chloride 111 H (98-107) mmol/L Carbon Dioxide 21 L (22-30) mmol/L Anion Gap 4 mmol/L BUN 7 (7-17) mg/dL Creatinine 0.83 (0.52-1.04) mg/dL Est GFR (CKD-EPI)AfAm >90 (>60 ml/min/1.73 sqM) Est GFR (CKD-EPI)NonAf 84 (>60 ml/min/1.73 sqM) Glucose 92 (74-99) mg/dL Plasma Lactic Acid Art (0.7-2.0) mmol/L Calcium 9.3 (8.4-10.2) mg/dL Total Bilirubin 0.5 (0.2-1.3) mg/dL AST 36 (14-36) U/L ALT 44 H (4-34) U/L Alkaline Phosphatase 79 (38-126) U/L Total Protein 5.9 L (6.3-8.2) g/dL Albumin 3.4 L (3.5-5.0) g/dL 10/12/23 Range/Units 14:50 WBC (3.8-10.6) k/uL RBC (3.80-5.40) m/uL Hgb (11.4-16.0) gm/dL Hct (34.0-46.0) % MCV (80.0-100.0) fL MCH (25.0-35.0) pg MCHC (31.0-37.0) g/dL RDW (11.5-15.5) % Plt Count (150-450) k/uL MPV Neutrophils % % Lymphocytes % % Monocytes % % Eosinophils % % Basophils % % Neutrophils # (1.3-7.7) k/uL Lymphocytes # (1.0-4.8) k/uL Monocytes # (0-1.0) k/uL Eosinophils # (0-0.7) k/uL Basophils # (0-0.2) k/uL PT (10.0-12.5) sec INR (<1.2) APTT (22.0-30.0) sec Sodium (137-145) mmol/L Potassium (3.5-5.1) mmol/L Chloride (98-107) mmol/L Carbon Dioxide (22-30) mmol/L Anion Gap mmol/L BUN (7-17) mg/dL Creatinine (0.52-1.04) mg/dL Est GFR (CKD-EPI)AfAm (>60 ml/min/1.73 sqM) Est GFR (CKD-EPI)NonAf (>60 ml/min/1.73 sqM) Glucose (74-99) mg/dL Plasma Lactic Acid Art 0.8 (0.7-2.0) mmol/L Calcium (8.4-10.2) mg/dL Total Bilirubin (0.2-1.3) mg/dL AST (14-36) U/L ALT (4-34) U/L Alkaline Phosphatase (38-126) U/L Total Protein (6.3-8.2) g/dL Albumin (3.5-5.0) g/dL Disposition Clinical Impression: Colon cancer Disposition: HOME SELF-CARE Condition: Fair Instructions (If sedation given, give patient instructions): Colorectal Cancer (DC) Is patient prescribed a controlled substance at d/c from ED?: No Referrals: Carlito Gutierres Jr, DO [Primary Care Provider] - 1-2 days Time of Disposition: 16:00
[2023-10-12 15:11] LABS: Basophils % (A) 0 %; Eosinophils # (A) 0.1 k/uL (0-0.7); Eosinophils % (A) 2 %; HCT 42.7 % (34.0-46.0); HGB 13.8 gm/dL (11.4-16.0); Lymphocytes % (A) 14 %; MCH 27.2 pg (25.0-35.0); MCHC 32.4 g/dL (31.0-37.0); MCV 83.9 fL (80.0-100.0); Mean Platelet Volume 7.6; Monocytes # (A) 0.6 k/uL (0-1.0); Monocytes % (A) 9 %; Neutrophils # (A) 5.2 k/uL (1.3-7.7); Neutrophils % (A) 73 %; Platelet Count 324 k/uL (150-450); RBC 5.08 m/uL (3.80-5.40); RDW 14.2 % (11.5-15.5); WBC 7.2 k/uL (3.8-10.6)
[2023-10-12 15:22] LABS: INR 0.8 (<1.2); Partial Thromboplastin Time 22.9 sec (22.0-30.0); Prothrombin Time 9.5 sec (10.0-12.5)
[2023-10-12 15:30] LABS: ALT 44 U/L (4-34); AST 36 U/L (14-36); African American GFR (CKD) >90 (>60 ml/min/1.73 sqM); Albumin 3.4 g/dL (3.5-5.0); Alkaline Phosphatase 79 U/L (38-126); Blood Urea Nitrogen 7 mg/dL (7-17); Calcium 9.3 mg/dL (8.4-10.2); Carbon Dioxide 21 mmol/L (22-30); Chloride 111 mmol/L (98-107); Glucose 92 mg/dL (74-99); Non-African American GFR(CKD) 84 (>60 ml/min/1.73 sqM); Total Bilirubin 0.5 mg/dL (0.2-1.3); Total Protein 5.9 g/dL (6.3-8.2)
[2023-10-12 15:36] LABS: Anion Gap 4 mmol/L; Potassium 4.3 mmol/L (3.5-5.1); Sodium 136 mmol/L (137-145)
== END 2023-10-12 16:20 | disposition home or self-care (01) ==
LOC: EC 14:19
DX: C18.9 Malignant neoplasm of colon, unspecified (principal); J45.909 Unspecified asthma, uncomplicated; F31.9 Bipolar disorder, unspecified; Z79.899 Other long term (current) drug therapy; Z90.49 Acquired absence of other specified parts of digestive tract
CPT/HCPCS: 36415; 80053; 83605; 85025; 85610; 85730; 99284

== ENCOUNTER → 2023-10-18 | Outpatient (CLI) | payer OTHER ==
[2023-10-18 15:56] LABS: Basophils # (A) 0.03 X 10*3/uL (0.00-0.10); Basophils % (A) 0.5 %; Eosinophils % (A) 1.6 %; HCT 42.6 % (37.2-46.3); HGB 13.8 g/dL (12.0-15.0); Lymphocytes # (A) 1.08 X 10*3/uL (0.90-5.00); Lymphocytes % (A) 16.7 %; MCH 26.6 pg (27.0-32.0); MCHC 32.4 g/dL (32.0-37.0); MCV 82.2 FL (80.0-97.0); Mean Platelet Volume 10.2 FL (9.5-12.2); Monocytes # (A) 0.71 X 10*3/uL (0.20-1.00); NRBC Per 100 WBC 0 X 10*3/uL (0.00-0.01); Neutrophils # (A) 4.51 X 10*3/uL (1.80-7.70); Neutrophils % (A) 69.9 %; Platelet Count 326 X 10*3/uL (140-440); RBC 5.18 X 10*6/uL (4.10-5.20); RDW 14.7 % (11.5-14.5); WBC 6.45 X 10*3/uL (4.50-10.00)
[2023-10-18 16:42] LABS: Anion Gap 9.4 mmol/L (4.00-12.00); Carbon Dioxide 24.6 mmol/L (21.6-31.8); Potassium 4.3 mmol/L (3.5-5.5)
== END | disposition home or self-care (01) ==
LOC: LABPAT 10:46
PROVIDERS: ATTEND Surgery
DX: Z01.818 Encounter for other preprocedural examination (principal); K56.609 Unspecified intestinal obstruction, unspecified as to partial versus complete obstruction; R94.31 Abnormal electrocardiogram [ECG] [EKG]
CPT/HCPCS: 36415; 80051; 85025; 86850; 86900; 86901; 93005

== ENCOUNTER 2023-10-20 13:48 | Inpatient (IN) | payer OTHER ==
--- NOTE | 2023-10-20 14:02 | ED ---
Abdominal Pain HPI - General Source: patient, RN notes reviewed Mode of arrival: ambulatory Limitations: no limitations <Lyubov Berger - Last Filed: 10/20/23 14:07> - General Source: RN notes reviewed, old records reviewed Mode of arrival: ambulatory Limitations: no limitations - History of Present Illness MD Complaint: abdominal pain, other (Nausea vomiting) -: days(s) Location: diffuse Migration to: no migration Severity: moderate Severity scale (1-10): 7 Quality: fullness, sharp Improves With: nothing Worsens With: nothing Context: other (Recent diagnosis of colon cancer) Associated Symptoms: nausea, diarrhea Treatments Prior to Arrival: other (0) <Dewayne Lino - Last Filed: 10/20/23 16:49> - General Chief Complaint: Abdominal Pain Stated Complaint: Abd pain Time Seen by Provider: 10/20/23 13:55 - History of Present Illness Initial Comments: Quick note-patient is a 48-year-old female with a current medical history of colon cancer, who presents to the ED with a chief complaint of abdominal pain. Patient states pain is worsening since Saturday, and is now having associated nausea, vomiting, and diarrhea. Patient denies dark tarry stools, blood in stools, or mucus. Denies denies any fevers, cough, congestion, or hememesis. (Lyubov Berger) This is a 48-year-old female to ER for evaluation of severe pain and recent diagnosis of colon cancer. Patient coming in for significant anxiety with nausea vomiting also having diarrhea and severe abdominal pain (Dewayne Lino) - Related Data Home Medications Medication Instructions Recorded Confirmed QUEtiapine FUMARATE [SEROquel XR] 300 mg PO HS 08/30/23 08/30/23 lamoTRIgine [LaMICtal Xr] 25 mg PO DAILY 08/30/23 08/30/23 Previous Rx's Medication Instructions Recorded Cephalexin [Keflex] 500 mg PO Q6HR 3 Days #20 cap 05/02/19 Cephalexin [Keflex] 500 mg PO Q6H 10 Days #40 cap 04/12/20 SILVER sulfADIAZINE CREAM 1 applic TOPICAL BID 10 Days #30 04/12/20 [Silvadene Cream] gram Cephalexin [Keflex] 500 mg PO Q6HR 7 Days #28 cap 04/20/20 Ibuprofen [Motrin] 600 mg PO Q8HR PRN #20 tab 08/15/20 Ibuprofen [Motrin] 600 mg PO Q8HR PRN #20 tab 02/12/22 Pantoprazole Sodium 40 mg PO DAILY #30 tab 09/01/23 Sucralfate [Carafate] 1 gm PO ACHS #120 tab 09/01/23 Allergies Allergy/AdvReac Type Severity Reaction Status Date / Time No Known Allergies Allergy Verified 10/20/23 15:02 Review of Systems ROS Other: All systems not noted in ROS Statement are negative. <Lyubov Berger - Last Filed: 10/20/23 14:07> ROS Other: All systems not noted in ROS Statement are negative. <Dewayne Lino - Last Filed: 10/20/23 16:49> ROS Statement: Those systems with pertinent positive or pertinent negative responses have been documented in the HPI. Past Medical History Past Medical History: No Reported History Additional Past Medical History / Comment(s): Asthma History of Any Multi-Drug Resistant Organisms: MRSA, None Reported Date of last positivie culture/infection: 05/31/16 MDRO Source:: leg Past Surgical History: Back Surgery, Section, Cholecystectomy Additional Past Surgical History / Comment(s): back surgery 2013, Past Anesthesia/Blood Transfusion Reactions: No Reported Reaction Past Psychological History: Anxiety, Bipolar, Depression Smoking Status: Never smoker Past Alcohol Use History: None Reported Past Drug Use History: None Reported <Lyubov Berger - Last Filed: 10/20/23 14:07> General Exam <Lyubov Berger - Last Filed: 10/20/23 14:07> General appearance: alert, in no apparent distress Head exam: Present: atraumatic, normocephalic, normal inspection Eye exam: Present: normal appearance, PERRL, EOMI. Absent: scleral icterus, conjunctival injection, periorbital swelling ENT exam: Present: normal exam, mucous membranes moist Neck exam: Present: normal inspection. Absent: tenderness, meningismus, lymphadenopathy Respiratory exam: Present: normal lung sounds bilaterally. Absent: respiratory distress, wheezes, rales, rhonchi, stridor Cardiovascular Exam: Present: regular rate, normal rhythm, normal heart sounds. Absent: systolic murmur, diastolic murmur, rubs, gallop, clicks GI/Abdominal exam: Present: soft, normal bowel sounds. Absent: distended, tenderness, guarding, rebound, rigid Extremities exam: Present: normal inspection, full ROM, normal capillary refill. Absent: tenderness, pedal edema, joint swelling, calf tenderness Back exam: Present: normal inspection Neurological exam: Present: alert, oriented X3, CN II-XII intact Psychiatric exam: Present: normal affect, normal mood Skin exam: Present: warm, dry, intact, normal color. Absent: rash <Dewayne Lino - Last Filed: 10/20/23 16:49> - General Exam Comments Initial Comments: Visual Physical Exam Vital signs reviewed General: Well-appearing, nontoxic, no acute distress. Head: Normocephalic, atraumatic Eyes: PERRLA, EOMI ENT: Airway patent Chest: Nonlabored breathing Skin: No visual rash, normal skin tone Neuro: Alert and oriented 3 Musculoskeletal: No gross abnormalities (Stieler,Lyubov) Course <Dewayne Lino - Dre Filed: 10/20/23 16:49> Vital Signs 10/20/23 10/20/23 14:58 16:25 Temperature 98.3 F 97.6 F Pulse Rate 79 74 Respiratory 18 16 Rate Blood Pressure 126/73 120/78 O2 Sat by Pulse 96 99 Oximetry - Reevaluation(s) Reevaluation #1: 10/20/23 16:48 Medical records reviewed (Dewayne Lino) Reevaluation #2: 10/20/23 16:48 Patient symptoms improved (Dewayne Lino) Reevaluation #3: 10/20/23 16:48 Patient informed of results and questions answered (Dewayne Lino) Reevaluation #4: Was pt. sent in by a medical professional or institution (, PA, AIR MOVING TECHNICIAN, urgent care, hospital, or fci...) When possible be specific @ -no Did you speak to anyone other than the patient for history (EMS, parent, family, police, friend...)? What history was obtained from this source @ -no Did you review nursing and triage notes (agree or disagree)? Why? @ -agree Are old charts reviewed (outside hosp., previous admission, EMS record, old EKG, old radiological studies, urgent care reports/EKG's, fci records)? Re port findings @ -yes Differential Diagnosis (chest pain, altered mental status, abdominal pain women, abdominal pain men, vaginal bleeding, weakness, fever, dyspnea, syncope, headache, dizziness, GI bleed, back pain, seizure, CVA, palpatations, mental health, musculoskeletal)? @ -prior EKG interpreted by me (3pts min.). @ -yes X-rays interpreted by me (1pt min.). @ -yes negative for acute disease CT interpreted by me (1pt min.). @ -no U/S interpreted by me (1pt. min.). @ -no What testing was considered but not performed or refused? (CT, X-rays, U/S, labs)? Why? @ -none What meds were considered but not given or refused? Why? @ -none Did you discuss the management of the patient with other professionals (professionals i.e. , PA, AIR MOVING TECHNICIAN, lab, RT, psych nurse, social sciences research scientist, casting molder, teacher, production officer, keycase assembler)? Give summary @ -no Was smoking cessation discussed for >3mins.? @ -no Was critical care preformed (if so, how long)? @ -no Were there social determinants of health that impacted care today? How? (Homelessness, low income, unemployed, alcoholism, drug addiction, transportation, low edu. Level, literacy, decrease access to med. care, group home, rehab)? @ -none Was there de-escalation of care discussed even if they declined (Discuss DNR or withdrawal of care, Hospice)? DNR status @ -no What co-morbidities impacted this encounter? (DM, HTN, Smoking, COPD, CAD, Cancer, CVA, ARF, Chemo, Hep., AIDS, mental health diagnosis, sleep apnea, morbid obesity)? @ -none Was patient admitted / discharged? Hospital course, mention meds given and route, prescriptions, significant lab abnormalities, going to OR and other pertinent info. @ - Undiagnosed new problem with uncertain prognosis? @ -no Drug Therapy requiring intensive monitoring for toxicity (Heparin, Nitro, Insulin, Cardizem)? @ -no Were any procedures done? @ -no Diagnosis/symptom? @ - Acute, or Chronic, or Acute on Chronic? @ -Acute Uncomplicated (without systemic symptoms) or Complicated (systemic symptoms)? @ -Complicated Side effects of treatment? @ -no Exacerbation, Progression, or Severe Exacerbation? @ -exacerbation Poses a threat to life or bodily function? How? (Chest pain, [place], [place], pneumonia, PE, COPD, DKA, ARF, appy, cholecystitis, CVA, Diverticulitis, Homicidal, Suicidal, threat to staff... and all critical care pts) @ -yes (Dewayne Lino) Reevaluation #5: Differential Abdominal Pain Men: Appendicitis, cholecystitis, diverticulosis, ischemic bowel, pancreatitis, hepatitis, UTI, gastroenteritis, AAA, incarcerated hernia, bowel obstruction, constipation, inflammatory bowel, hepatitis, peptic ulcer disease, splenic infa rction, perforated viscus, testicular torsion, this is not meant to be an all- inclusive list (Dewayne Lino) - Consultations Consultation #1: Spoke with Dr. Therese tabares who agrees to admit this patient (Dewayne Lino) Medical Decision Making <Lyubov Berger - Last Filed: 10/20/23 14:07> - Lab Data Result diagrams: 10/20/23 15:49 10/20/23 15:49 <Dewayne Lino - Last Filed: 10/20/23 16:49> - Medical Decision Making I completed the quick note portion of this chart signed Lyubov Berger PA-C (Lyubov Berger) 48 female will be admitted for new diagnosis of acute CVA, colon cancer admit for pain control and further evaluation (Dewayne Lino) - Lab Data Lab Results 10/20/23 10/20/23 Range/Units 15:49 15:49 WBC 5.0 (3.8-10.6) k/uL RBC 4.94 (3.80-5.40) m/uL Hgb 13.6 (11.4-16.0) gm/dL Hct 41.7 (34.0-46.0) % MCV 84.4 (80.0-100.0) fL MCH 27.5 (25.0-35.0) pg MCHC 32.5 (31.0-37.0) g/dL RDW 14.6 (11.5-15.5) % Plt Count 294 (150-450) k/uL MPV 8.0 Neutrophils % 61 % Lymphocytes % 24 % Monocytes % 10 % Eosinophils % 2 % Basophils % 1 % Neutrophils # 3.0 (1.3-7.7) k/uL Lymphocytes # 1.2 (1.0-4.8) k/uL Monocytes # 0.5 (0-1.0) k/uL Eosinophils # 0.1 (0-0.7) k/uL Basophils # 0.0 (0-0.2) k/uL Sodium 138 (137-145) mmol/L Potassium 4.4 (3.5-5.1) mmol/L Chloride 109 H (98-107) mmol/L Carbon Dioxide 25 (22-30) mmol/L Anion Gap 4 mmol/L BUN 9 (7-17) mg/dL Creatinine 0.90 (0.52-1.04) mg/dL Est GFR (CKD-EPI)AfAm 88 (>60 ml/min/1.73 sqM) Est GFR (CKD-EPI)NonAf 76 (>60 ml/min/1.73 sqM) Glucose 83 (74-99) mg/dL Calcium 9.4 (8.4-10.2) mg/dL Total Bilirubin 0.5 (0.2-1.3) mg/dL AST 27 (14-36) U/L ALT 29 (4-34) U/L Alkaline Phosphatase 68 (38-126) U/L Total Protein 5.7 L (6.3-8.2) g/dL Albumin 3.4 L (3.5-5.0) g/dL Amylase 44 (30-110) U/L Disposition <Lyubov Berger - Last Filed: 10/20/23 14:07> Is patient prescribed a controlled substance at d/c from ED?: No Time of Disposition: 16:35 <Dewayne Lino - Last Filed: 10/20/23 16:49> Clinical Impression: Abdominal pain, Abdominal colic, Colon cancer Disposition: ADMITTED IP TO THIS HOSP Condition: Fair Referrals: Carlito Gutierres Jr, DO [Primary Care Provider] - 1-2 days
[2023-10-20 16:26] LABS: Basophils % (A) 1 %; Eosinophils # (A) 0.1 k/uL (0-0.7); Eosinophils % (A) 2 %; HCT 41.7 % (34.0-46.0); HGB 13.6 gm/dL (11.4-16.0); Lymphocytes # (A) 1.2 k/uL (1.0-4.8); Lymphocytes % (A) 24 %; MCH 27.5 pg (25.0-35.0); MCHC 32.5 g/dL (31.0-37.0); MCV 84.4 fL (80.0-100.0); Monocytes # (A) 0.5 k/uL (0-1.0); Monocytes % (A) 10 %; Neutrophils % (A) 61 %; Platelet Count 294 k/uL (150-450); RBC 4.94 m/uL (3.80-5.40); RDW 14.6 % (11.5-15.5)
[2023-10-20 16:37] LABS: ALT 29 U/L (4-34); AST 27 U/L (14-36); African American GFR (CKD) 88 (>60 ml/min/1.73 sqM); Albumin 3.4 g/dL (3.5-5.0); Alkaline Phosphatase 68 U/L (38-126); Amylase 44 U/L (30-110); Anion Gap 4 mmol/L; Blood Urea Nitrogen 9 mg/dL (7-17); Calcium 9.4 mg/dL (8.4-10.2); Carbon Dioxide 25 mmol/L (22-30); Chloride 109 mmol/L (98-107); Glucose 83 mg/dL (74-99); Non-African American GFR(CKD) 76 (>60 ml/min/1.73 sqM); Potassium 4.4 mmol/L (3.5-5.1); Sodium 138 mmol/L (137-145); Total Bilirubin 0.5 mg/dL (0.2-1.3); Total Protein 5.7 g/dL (6.3-8.2)
[2023-10-20] MEDS ORDERED: ONDANSETRON 4 MG/2 ML VIAL IVP PRN (16:46)
[2023-10-20] MEDS ORDERED: NALOXONE 0.4 MG/ML 1 ML VIAL IV PRN (16:46)
[2023-10-20] MEDS ORDERED: MORPHINE SULFATE 4 MG/ML SYRINGE IV PRN (16:46)
[2023-10-20] MEDS: SODIUM CHLORIDE 0.9% 1,000 ML IV SCH (17:13)
[2023-10-20] MEDS: HYDROmorphone 1 MG/ML 1 ML SYRINGE IVP STA (17:13)
[2023-10-20] MEDS: diphenhydrAMINE 50 MG/ML 1 ML VIAL IVP PRN (20:10)
[2023-10-20] MEDS: QUEtiapine 50 MG TAB PO PRN (21:43)
[2023-10-21] MEDS: lamoTRIgine 25 MG TAB PO SCH (08:41)
[2023-10-21] MEDS: PANTOPRAZOLE 40 MG/10 ML VIAL IV SCH (08:41)
[2023-10-21 08:47] LABS: Basophils # (A) 0.03 X 10*3/uL (0.00-0.10); Basophils % (A) 0.8 %; Eosinophils # (A) 0.12 X 10*3/uL (0.04-0.35); Eosinophils % (A) 3.4 %; HCT 36.1 % (37.2-46.3); HGB 11.7 g/dL (12.0-15.0); Lymphocytes # (A) 0.87 X 10*3/uL (0.90-5.00); Lymphocytes % (A) 24.3 %; MCH 27.4 pg (27.0-32.0); MCHC 32.4 g/dL (32.0-37.0); MCV 84.5 FL (80.0-97.0); Mean Platelet Volume 10.6 FL (9.5-12.2); Monocytes # (A) 0.54 X 10*3/uL (0.20-1.00); Monocytes % (A) 15.1 %; NRBC Per 100 WBC 0 X 10*3/uL (0.00-0.01); Neutrophils # (A) 2.01 X 10*3/uL (1.80-7.70); Neutrophils % (A) 56.1 %; Platelet Count 254 X 10*3/uL (140-440); RBC 4.27 X 10*6/uL (4.10-5.20); RDW 14.9 % (11.5-14.5); WBC 3.58 X 10*3/uL (4.50-10.00)
[2023-10-21 08:52] LABS: ALT 21 U/L (8-44); AST 15 U/L (13-35); Albumin 2.9 g/dL (3.8-4.9); Albumin/Globulin Ratio 2.07 Ratio (1.60-3.17); Alkaline Phosphatase 53 U/L (41-126); BUN/Creat Ratio 8.25 Ratio (12.00-20.00); Blood Urea Nitrogen 6.6 mg/dL (9.0-27.0); Calcium 8.6 mg/dL (8.7-10.3); Carbon Dioxide 21.3 mmol/L (21.6-31.8); Chloride 111 mmol/L (96-109); Globulin 1.4 g/dL (1.6-3.3); Glucose 85 mg/dL (70-110); Magnesium 2.2 mg/dL (1.5-2.4); Phosphorus 3.9 mg/dL (2.4-5.1); Potassium 4.3 mmol/L (3.5-5.5); Sodium 142 mmol/L (135-145); Total Bilirubin 0.3 mg/dL (0.3-1.2); Total Protein 4.3 g/dL (6.2-8.2)
--- NOTE | 2023-10-21 12:12 | P.GSCN ---
History of Present Illness Consult date: 10/21/23 History of present illness: CHIEF COMPLAINT: Colon cancer HISTORY OF PRESENT ILLNESS: This is a 48-year-old female who reports being diagnosed with colon cancer at the end of September 2023. Patient complains of right-sided abdominal pain. She reports having diarrhea on Saturday. Denies any blood in her stools. She had a CT scan abdomen pelvis completed on October 08, 2023 that reported enhancing lesion with apple core appearance in the ascending colon highly concerning for neoplasm. Appearance of appendix concerning for acute appendicitis with malignant involvement not excluded. Mildly prominent right lower quadrant lymph nodes could be reactive or early metastasis are not excluded. Patient's past surgical history includes cholecystectomy and . Denies cardiac history. Denies any chest pain or shortness of breath. PAST MEDICAL HISTORY: Asthma, anxiety, bipolar depression PAST SURGICAL HISTORY: , cholecystectomy and back surgery MEDICATIONS: See below ALLERGIES: See below SOCIAL HISTORY: No illicit drug use. REVIEW OF SYSTEMS: CONSTITUTIONAL: Denies fever or chills. HEENT: Denies blurred vision, vision changes, or eye pain. Denies hemoptysis CARDIOVASCULAR: Denies chest pain or pressure. RESPIRATORY: No shortness of breath. GASTROINTESTINAL: See HPI for pertinent findings HEMATOLOGIC: Denies bleeding disorders. GENITOURINARY: Denies any blood in urine or increased urinary frequency. SKIN: Denies pruitis. Denies rash. PHYSICAL EXAM: VITAL SIGNS: Reviewed GENERAL: Well-developed in no acute distress. HEENT: No sclera icterus. Extraocular movements grossly intact. Moist buccal mucosa. Head is atraumatic, normocephalic. No nasal drainage. ABDOMEN: Soft. Nondistended. Tenderness with palpation of the right side of the abdomen NEUROLOGIC: Alert and oriented. Cranial nerves II through XII grossly intact. LABORATORY DATA: WBC 3.58 Hgb 11.7 platelets 254 Sodium is 142 potassium 4.3 creatinine 0.8 Magnesium 2.2 IMAGING: ASSESSMENT: 1. Right colon cancer PLAN: -Patient scheduled for right colectomy today with Dr. Lawson -Keep patient n.p.o. -Continue supportive care Physician Telecommunications Field Technician note has been reviewed by physician. Signing provider agrees with the documented findings, assessment, and plan of care. Past Medical History Past Medical History: Cancer Additional Past Medical History / Comment(s): Asthma, Colon cancer diagnosis Sep 2023, Bipolar History of Any Multi-Drug Resistant Organisms: MRSA, None Reported Year Discovered:: 05/31/16 MDRO Source:: leg Past Surgical History: Back Surgery, Section, Cholecystectomy Additional Past Surgical History / Comment(s): back surgery 2013, Past Anesthesia/Blood Transfusion Reactions: No Reported Reaction Past Psychological History: Anxiety, Bipolar, Depression Smoking Status: Never smoker Past Alcohol Use History: None Reported Past Drug Use History: None Reported Medications and Allergies Home Medications Medication Instructions Recorded Confirmed Type Nystatin 100,000Unit/gm Cream 1 applic TOPICAL BID PRN 10/20/23 10/20/23 History [Mycostatin Cream] QUEtiapine [SEROquel] 50 - 100 mg PO HS PRN 10/20/23 10/20/23 History hydrOXYzine HCL [Atarax] 25 mg PO TID PRN 10/20/23 10/20/23 History lamoTRIgine [lamoTRIgine ER] 100 mg PO DAILY 10/20/23 10/20/23 History oxyCODONE-APAP 7.5-325MG [Percocet 1 - 2 tab PO DIRECTED PRN 10/20/23 10/20/23 History 7.5-325 mg] Allergies Allergy/AdvReac Type Severity Reaction Status Date / Time No Known Allergies Allergy Verified 10/20/23 17:46 Surgical - Exam Vital Signs Temp Pulse Resp BP Pulse Ox 98.3 F 79 18 126/73 96 10/20/23 14:58 10/20/23 14:58 10/20/23 14:58 10/20/23 14:58 10/20/23 14:58 Results - Labs 10/21/23 04:59 10/21/23 04:59 Abnormal Lab Results - Last 24 Hours (Table) 10/20/23 10/21/23 10/21/23 Range/Units 15:49 04:59 04:59 WBC 3.58 L (4.50-10.00) X 10*3/uL Hgb 11.7 L (12.0-15.0) g/dL Hct 36.1 L (37.2-46.3) % RDW 14.9 H (11.5-14.5) % Lymphocytes # 0.87 L (0.90-5.00) X 10*3/uL Chloride 109 H 111 H (98-107) mmol/L Carbon Dioxide 21.3 L (21.6-31.8) mmol/L BUN 6.6 L (9.0-27.0) mg/dL BUN/Creatinine Ratio 8.25 L (12.00-20.00) Ratio Calcium 8.6 L (8.7-10.3) mg/dL Total Protein 5.7 L 4.3 L (6.3-8.2) g/dL Albumin 3.4 L 2.9 L (3.5-5.0) g/dL Globulin 1.4 L (1.6-3.3) g/dL Diabetes panel 10/20/23 10/21/23 Range/Units 15:49 04:59 Sodium 138 142 (137-145) mmol/L Potassium 4.4 4.3 (3.5-5.1) mmol/L Chloride 109 H 111 H (98-107) mmol/L Carbon Dioxide 25 21.3 L (22-30) mmol/L BUN 9 6.6 L (7-17) mg/dL Creatinine 0.90 0.8 (0.52-1.04) mg/dL Glucose 83 85 (74-99) mg/dL Calcium 9.4 8.6 L (8.4-10.2) mg/dL AST 27 15 (14-36) U/L ALT 29 21 (4-34) U/L Alkaline Phosphatase 68 53 (38-126) U/L Total Protein 5.7 L 4.3 L (6.3-8.2) g/dL Albumin 3.4 L 2.9 L (3.5-5.0) g/dL Calcium panel 10/20/23 10/21/23 Range/Units 15:49 04:59 Calcium 9.4 8.6 L (8.4-10.2) mg/dL Phosphorus 3.9 (2.4-5.1) mg/dL Albumin 3.4 L 2.9 L (3.5-5.0) g/dL Pituitary panel 10/20/23 10/21/23 Range/Units 15:49 04:59 Sodium 138 142 (137-145) mmol/L Potassium 4.4 4.3 (3.5-5.1) mmol/L Chloride 109 H 111 H (98-107) mmol/L Carbon Dioxide 25 21.3 L (22-30) mmol/L BUN 9 6.6 L (7-17) mg/dL Creatinine 0.90 0.8 (0.52-1.04) mg/dL Glucose 83 85 (74-99) mg/dL Calcium 9.4 8.6 L (8.4-10.2) mg/dL Adrenal panel 10/20/23 10/21/23 Range/Units 15:49 04:59 Sodium 138 142 (137-145) mmol/L Potassium 4.4 4.3 (3.5-5.1) mmol/L Chloride 109 H 111 H (98-107) mmol/L Carbon Dioxide 25 21.3 L (22-30) mmol/L BUN 9 6.6 L (7-17) mg/dL Creatinine 0.90 0.8 (0.52-1.04) mg/dL Glucose 83 85 (74-99) mg/dL Calcium 9.4 8.6 L (8.4-10.2) mg/dL Total Bilirubin 0.5 0.3 (0.2-1.3) mg/dL AST 27 15 (14-36) U/L ALT 29 21 (4-34) U/L Alkaline Phosphatase 68 53 (38-126) U/L Total Protein 5.7 L 4.3 L (6.3-8.2) g/dL Albumin 3.4 L 2.9 L (3.5-5.0) g/dL
[2023-10-21] MEDS: MIDAZOLAM 2 MG/2 ML VIAL IVP ONE (13:36)
[2023-10-21] MEDS: fentaNYL (PF) 50 MCG/ML 2 ML AMP IVP ONE (13:36)
[2023-10-21] MEDS ORDERED: NALOXONE 0.4 MG/ML 1 ML VIAL IV PRN ×2 (13:48→15:09)
[2023-10-21] MEDS ORDERED: ONDANSETRON 4 MG/2 ML VIAL IVP PRN (13:48)
[2023-10-21] MEDS ORDERED: GLYCOPYRROLATE 0.2 MG/ML 2 ML VIAL ONE (13:50)
[2023-10-21] MEDS ORDERED: fentaNYL (PF) 50 MCG/ML 2 ML AMP ONE (13:50)
[2023-10-21] MEDS ORDERED: PROPOFOL 10 MG/ML 20 ML VIAL IV ONE (13:50)
[2023-10-21] MEDS ORDERED: NEOSTIGMINE 1 MG/ML 10 ML VIAL ONE (13:50)
[2023-10-21] MEDS ORDERED: SUCCINYLCHOLINE CHLORIDE 200 MG/10 ML VIAL IV ONE (13:50)
[2023-10-21] MEDS ORDERED: LIDOCAINE 1% INJ 10MG/ML (20 ML MDV) ONE (13:50)
[2023-10-21] MEDS ORDERED: ROCURONIUM 10 MG/ML (5 ML VIAL) IV ONE (13:50)
--- NOTE | 2023-10-21 13:50 | P.ANPRN ---
Procedure Note - Anesthesia - Epidural/Spinal Epidural Continuous Time Out Performed: Yes Date of Procedure: 10/21/23 Procedure Start Time: 13:36 Procedure Stop Time: 13:42 Location of Patient: PreOp Indication: Acute Post-Operative Pain, Requested by Surgeon Sedation Type: Sedate with meaningful contact maintained Preparation: Sterile Dressing Position: Sitting Catheter: Indwelling Needle Guage: 18 Blood Aspirated: No Pain Paresthesia on Injection Noted: No Events: Uneventful and Well Tolerated
[2023-10-21] MEDS: ONDANSETRON 4 MG/2 ML VIAL IVP ONE ×2 (13:53→15:27)
[2023-10-21] MEDS: LACTATED RINGERS 1,000 ML IV ONE ×2 (13:53→16:34)
[2023-10-21] MEDS: DEXAMETHASONE SOD PHOSPHATE 4 MG/ML 1 ML VIAL IVP ONE (13:55)
--- NOTE | 2023-10-21 14:06 | P.HPIM ---
History of Present Illness H&P Date: 10/21/23 Chief Complaint: Newly diagnosed obstructive neoplasm of ascending colon dionne eduled for surge This is a 48-year-old female recently diagnosed with obstructive ascending colon neoplasm/colon cancer in September 2023, evaluated by surgery and scheduled for right hemicolectomy, in a patient with past medical history significant for asthma, bipolar, obesity and multiple other medical issues. Abdomen/pelvis CT completed in September 2023 reporting enhancing lesion with apple core appearance in the ascending colon highly concerning for neoplasm, appearance of appendix concerning for acute appendicitis with malignant involvement not excluded, mildly prominent right lower quadrant lymph nodes, could be reactive or early metastasis not excluded. complains of right-sided abdominal pain, nausea vomiting and diarrhea. Denies blood in stools. Afebrile, WBC 3.58, hemoglobin 11.7, platelets 254 .electrolytes and renal function within normal limits .Denies chest pain, palpitations or shortness of breath. Maintaining O2 sats in the high 90s on room air. denies lightheadedness, dizziness or focal deficits. Review of Systems ROS Statement: Those systems with pertinent positive or pertinent negative responses have been documented in the HPI. ROS Other: All systems not noted in ROS Statement are negative. Past Medical History Past Medical History: Cancer Additional Past Medical History / Comment(s): Asthma, Colon cancer diagnosis Sep 2023, Bipolar History of Any Multi-Drug Resistant Organisms: MRSA, None Reported Date of last positivie culture/infection: 05/31/16 MDRO Source:: leg Past Surgical History: Back Surgery, Section, Cholecystectomy Additional Past Surgical History / Comment(s): back surgery 2013, Past Anesthesia/Blood Transfusion Reactions: No Reported Reaction Past Psychological History: Anxiety, Bipolar, Depression Smoking Status: Never smoker Past Alcohol Use History: None Reported Past Drug Use History: None Reported Medications and Allergies Home Medications Medication Instructions Recorded Confirmed Type Nystatin 100,000Unit/gm Cream 1 applic TOPICAL BID PRN 10/20/23 10/20/23 History [Mycostatin Cream] QUEtiapine [SEROquel] 50 - 100 mg PO HS PRN 10/20/23 10/20/23 History hydrOXYzine HCL [Atarax] 25 mg PO TID PRN 10/20/23 10/20/23 History lamoTRIgine [lamoTRIgine ER] 100 mg PO DAILY 10/20/23 10/20/23 History oxyCODONE-APAP 7.5-325MG [Percocet 1 - 2 tab PO DIRECTED PRN 10/20/23 10/20/23 History 7.5-325 mg] Allergies Allergy/AdvReac Type Severity Reaction Status Date / Time No Known Allergies Allergy Verified 10/21/23 12:59 Physical Exam Vitals: Vital Signs Temp Pulse Pulse Resp BP BP Pulse Ox 10/21/23 07:17 98 F 63 16 91/60 96 10/21/23 01:30 98.5 F 59 L 16 92/54 95 10/20/23 21:41 98.4 F 67 18 110/61 96 10/20/23 20:05 18 10/20/23 17:49 74 16 116/70 10/20/23 16:25 97.6 F 74 16 120/78 99 10/20/23 14:58 98.3 F 79 18 126/73 96 Intake and Output 10/20/23 10/21/23 10/21/23 22:59 06:59 14:59 Intake Total 1500 Balance 1500 Intake: Intake, IV Titration 1500 Amount Sodium Chloride 0.9% 1, 1500 000 ml @ 130 mls/hr IV . Q7H42M [facility] Rx#:[id number] Other: Voiding Method Toilet Toilet # Voids 3 Weight 92.986 kg GENERAL: Well-developed, well-nourished female. NAD HEENT: Atraumatic, normocephalic.Pupils equal round and reactive to light, extraocular movements intact, sclera anicteric, conjunctiva are normal. Oral mucosa dry. NECK: Normal range of motion, supple without lymphadenopathy or JVD, no thyromegaly LUNGS: Unlabored, equal air entry, breath sounds clear to auscultation bilater ally and equal. No wheezes rales or rhonchi. HEART: Regular rate and rhythm without murmurs, rubs or gallops.S1S2 Normal ABDOMEN: Soft, nondistended, right-sided tenderness to palpation, positive bowel sounds. EXTREMITIES: Normal range of motion, no pitting or edema. No clubbing or cyanosis. NEUROLOGICAL: Cranial nerves II through XII grossly intact. PSYCH: Normal mood, normal affect. SKIN: Warm, Dry, normal turgor, no rashes or lesions noted. Results CBC & Chem 7: 10/21/23 04:59 10/21/23 04:59 Labs: Abnormal Lab Results - Last 24 Hours (Table) 10/20/23 10/21/23 10/21/23 Range/Units 15:49 04:59 04:59 WBC 3.58 L (4.50-10.00) X 10*3/uL Hgb 11.7 L (12.0-15.0) g/dL Hct 36.1 L (37.2-46.3) % RDW 14.9 H (11.5-14.5) % Lymphocytes # 0.87 L (0.90-5.00) X 10*3/uL Chloride 109 H 111 H (98-107) mmol/L Carbon Dioxide 21.3 L (21.6-31.8) mmol/L BUN 6.6 L (9.0-27.0) mg/dL BUN/Creatinine Ratio 8.25 L (12.00-20.00) Ratio Calcium 8.6 L (8.7-10.3) mg/dL Total Protein 5.7 L 4.3 L (6.3-8.2) g/dL Albumin 3.4 L 2.9 L (3.5-5.0) g/dL Globulin 1.4 L (1.6-3.3) g/dL Thrombosis Risk Factor Assmnt - Choose All That Apply Any of the Below Risk Factors Present?: Yes Each Factor Represents 1 point: Obesity (BMI >25) Each Risk Factor Represents 2 Points: Malignancy Thrombosis Risk Factor Assessment Total Risk Factor Score: 3 Thrombosis Risk Factor Assessment Level: Moderate Risk Assessment and Plan Assessment: Obstructive ascending colon Neoplasm, suggestive of right colon cancer as per CT, right colectomy ending Bipolar disorder Asthma, mild intermittent, stable Plan: Continue on current medication regimen ,monitoring and symptomatic treatment. Gentle IV fluid hydration, NPO. Scheduled for right hemicolectomy today. Antiemetics .Aggressive pulmonary toileting with incentive spirometer ordered. Pain management and DVT prophylaxis as per general surgery. The impression and plan of care has been dictated as directed. : I performed a history and examination of this patient, discussed the same with the dictator. I agree with the dictator's note ,documented as a scribe. Any additional findings or plans will be noted.
[2023-10-21] MEDS ORDERED: HYDROmorphone 0.5 MG/0.5 ML SYRINGE IVP PRN (15:09)
[2023-10-21] MEDS ORDERED: traMADol 50 MG TAB PO PRN (15:09)
[2023-10-21] MEDS ORDERED: HYDROmorphone 1 MG/ML 1 ML SYRINGE IVP PRN (15:09)
[2023-10-21] MEDS ORDERED: ACETAMINOPHEN TAB 325 MG TAB PO PRN (15:09)
--- NOTE | 2023-10-21 15:09 | P.OP ---
Date of Procedure: 10/21/23 Preoperative Diagnosis: Obstructing right colon mass Postoperative Diagnosis: Obstructing right colon mass Procedure(s) Performed: Right colectomy Partial omentectomy Anesthesia: BRAD Surgeon: Augustine Lawson Estimated Blood Loss (ml): 10 Pathology: other (Omentum, right colon) Condition: stable Disposition: PACU Description of Procedure: The patient's placed on the operative table in supine position. She received general endotracheal tube anesthesia. Her abdomen was prepped and draped usual sterile fashion. The skin was incised in the midline. And then using electrocautery the abdominal wall was divided. The Bookwalter tract with wound. The right colon and small bowel appeared to be grossly dilated. There was an obstructing tumor seen near the hepatic flexure. At this point the right colon was mobilized by dividing the white line of Toldt's. And then the hepatic flexure was taken down with left cautery. The colon was reflected into the midline. The terminal ileum was transected with a GI stapler. And then the proximal transverse colon was transected with a GI stapler. Using the Enseal device the mesentery the bowel was divided. The specimens of pathology. The liver is palpated. The liver appeared to be normal. There is no masses palpated in the liver. This point a ofmb-vs-[id number] functional end-to-end staple anastomosis created using the MCKINLEY and TA stapler. 3-0 GI silk sutures using a crotch stitch. A portion of omentum appeared to be nonviable. This was divided with the Enseal device and sent to pathology. The abdomen. There is no bleeding seen. The fascia closed loop #1 PDS suture. Skin closed table. Patient tolerated the procedure well. she will. She was sent to recovery in stable condition.
[2023-10-21] MEDS: ROPIVACAINE 250 MG, HYDROMORPHONE (PF) 5 MG in SODIUM CHLORIDE 0.9% 200 ML EPIDURAL PRN (15:21)
[2023-10-21] MEDS: HEPARIN SODIUM,PORCINE 5,000 UNIT/ML 1 ML VIAL SQ SCH (16:34)
[2023-10-21] MEDS: diphenhydrAMINE 50 MG/ML 1 ML VIAL IVP PRN (19:52)
[2023-10-21] MEDS: FAMOTIDINE 20 MG TAB PO SCH (20:00)
[2023-10-22] MEDS: ONDANSETRON 4 MG/2 ML VIAL IVP PRN (01:18)
--- NOTE | 2023-10-22 08:46 | P.PN ---
Progress Note - Text Progress Note Date: 10/22/23 (650) Anesthesia Postop day 1 Status post right colectomy with epidural day 2 Patient seen and examined. Doing well without complaint. VAS 6 out of 10. Positive pruritus. No nausea or vomiting. Ropivacaine 0.1% with Dilaudid 20 mcg/mL at 9 cc an hour. Objective: Vital signs reviewed Lungs: Good chest excursion Abdomen: Appears nondistended Other: Epidural Site Intact without induration. Dressing intact Neuro: No apparent motor block. Sensory within normal limits. Assessment: Status post right colectomy postop day 1 Plan: Continue current care with your medical management. Anticipate reevaluation tomorrow.
--- NOTE | 2023-10-22 08:50 | P.CONS ---
History of Present Illness - Reason for Consult Consult date: 10/21/23 known Requesting physician: Dewayne Lino - Chief Complaint abd pain, colon mass - History of Present Illness Patient is a 48-year-old female with recent diagnosis of colon mass. Consult was placed for further evaluation of abnormal CT finding. She had CT AP Obtained on 10/08/2023 revealed enhancing lesion measuring 2.7 x 2.6 x 2.7 cm with apple core appearance causing luminal narrowing in the ascending colon. With mild associated distention of the colon proximally. Appearance of the appendix concerning for acute appendicitis. Mildly prominent right lower quadrant lymph nodes. Mild/moderate pneumobilia. Patient reports has been having ongoing generalized abdominal pain and nausea vomiting for the last 2-1/2 months, with associated weight loss. She has not underwent colonoscopy in the past. Denies blood in stool/melena. Denies personal history of cancer but fathr had history of throat cancer. CBC reviewed, WBC 3.5, hemoglobin 11.7, platelets 254,000. LFTs and bilirubin WNL. Amylase 44. General surgery following with plans for colectomy. Pt represented to the ER for persisting right sided abdominal pain and diarrhea. Review of Systems 10 point ROS is negative except as stated in the HPI Past Medical History Past Medical History: Cancer Additional Past Medical History / Comment(s): Asthma, Colon cancer diagnosis Sep 2023, Bipolar History of Any Multi-Drug Resistant Organisms: MRSA, None Reported Year Discovered:: 05/31/16 MDRO Source:: leg Past Surgical History: Back Surgery, Section, Cholecystectomy Additional Past Surgical History / Comment(s): back surgery 2013, Past Anesthesia/Blood Transfusion Reactions: No Reported Reaction Past Psychological History: Anxiety, Bipolar, Depression Smoking Status: Never smoker Past Alcohol Use History: None Reported Past Drug Use History: None Reported Medications and Allergies Home Medications Medication Instructions Recorded Confirmed Type Nystatin 100,000Unit/gm Cream 1 applic TOPICAL BID PRN 10/20/23 10/20/23 History [Mycostatin Cream] QUEtiapine [SEROquel] 50 - 100 mg PO HS PRN 10/20/23 10/20/23 History hydrOXYzine HCL [Atarax] 25 mg PO TID PRN 10/20/23 10/20/23 History lamoTRIgine [lamoTRIgine ER] 100 mg PO DAILY 10/20/23 10/20/23 History oxyCODONE-APAP 7.5-325MG [Percocet 1 - 2 tab PO DIRECTED PRN 10/20/23 10/20/23 History 7.5-325 mg] Allergies Allergy/AdvReac Type Severity Reaction Status Date / Time No Known Allergies Allergy Verified 10/21/23 12:59 Physical Exam Vitals: Vital Signs Temp Pulse Pulse Resp BP BP Pulse Ox 10/21/23 13:46 80 16 105/60 96 10/21/23 13:08 97.3 F L 71 16 108/60 97 10/21/23 12:20 98.2 F 63 16 103/65 97 10/21/23 07:17 98 F 63 16 91/60 96 10/21/23 01:30 98.5 F 59 L 16 92/54 95 10/20/23 21:41 98.4 F 67 18 110/61 96 10/20/23 20:05 18 10/20/23 17:49 74 16 116/70 10/20/23 16:25 97.6 F 74 16 120/78 99 10/20/23 14:58 98.3 F 79 18 126/73 96 Intake and Output 10/20/23 10/21/23 10/21/23 22:59 06:59 14:59 Intake Total 1500 150 Balance 1500 150 Intake: IV 150 Intake, IV Titration 1500 Amount Sodium Chloride 0.9% 1, 1500 000 ml @ 130 mls/hr IV . Q7H42M [facility] Rx#:[id number] Other: Voiding Method Toilet Toilet # Voids 3 Weight 92.986 kg - Constitutional General appearance: average body habitus, no acute distress - EENT Eyes: anicteric sclerae, EOMI ENT: hearing grossly normal - Neck Neck: no lymphadenopathy - Respiratory Respiratory: bilateral: CTA - Cardiovascular Rhythm: regular Heart sounds: normal: S1, S2 - Gastrointestinal General gastrointestinal: no distended, tenderness Localized gastrointestinal: tender: RUQ, RLQ (greater RLQ than RUQ) - Integumentary Integumentary: no cyanotic, no jaundiced - Neurologic no focal deficits - Musculoskeletal Musculoskeletal: strength equal bilaterally - Psychiatric Psychiatric: A&O x's 3 Results CBC & Chem 7: 10/21/23 04:59 03/04/24 04:59 Labs: Abnormal Lab Results - Last 24 Hours (Table) 10/20/23 10/21/23 10/21/23 Range/Units 15:49 04:59 04:59 WBC 3.58 L (4.50-10.00) X 10*3/uL Hgb 11.7 L (12.0-15.0) g/dL Hct 36.1 L (37.2-46.3) % RDW 14.9 H (11.5-14.5) % Lymphocytes # 0.87 L (0.90-5.00) X 10*3/uL Chloride 109 H 111 H (98-107) mmol/L Carbon Dioxide 21.3 L (21.6-31.8) mmol/L BUN 6.6 L (9.0-27.0) mg/dL BUN/Creatinine Ratio 8.25 L (12.00-20.00) Ratio Calcium 8.6 L (8.7-10.3) mg/dL Total Protein 5.7 L 4.3 L (6.3-8.2) g/dL Albumin 3.4 L 2.9 L (3.5-5.0) g/dL Globulin 1.4 L (1.6-3.3) g/dL CT scan - abdomen: report reviewed CT scan - pelvis: report reviewed Assessment and Plan (1) Colonic mass Current Visit: Yes Status: Acute Priority: High Code(s): K63.89 - OTHER SPECIFIED DISEASES OF INTESTINE SNOMED Code(s): 821636395 (2) Abdominal pain Current Visit: Yes Status: Acute Priority: High Code(s): R10.9 - UNSPECIFIED ABDOMINAL PAIN SNOMED Code(s): 90118797 Plan: Abdominal pain/colonic mass: Patient reports she has been having ongoing generalized abdominal pain, worse on the right, and nausea vomiting for the last 2-1/2 months, with associated weight loss. She has not underwent colonoscopy in the past. Denies blood in stool/melena. Denies personal history of cancer but father had history of throat cancer. -CT AP Obtained on 10/08/2023 revealed enhancing lesion measuring 2.7 x 2.6 x 2.7 cm with apple core appearance causing luminal narrowing in the ascending colon. With mild associated distention of the colon proximally. Appearance of the appendix concerning for acute appendicitis. Mildly prominent right lower quadrant lymph nodes. Mild/moderate pneumobilia. -CBC reviewed, WBC 3.5, hemoglobin 11.7, platelets 254,000. LFTs and bilirubin WNL. Amylase 44 -General surgery following with plans for colectomy today. Discussed with pt, pathology once obtained will take 3-5 days. And pending path, any treatment would be on hold for 4-6 weeks to allow adequate recovery time -Will continue to follow and establish outpt f/u in clinic attests: I have seen and examined patient, performed H&P, developed impression and plan of care. Discussed with dictator. Agree with documentation, dictated as a scribe
[2023-10-22] MEDS: NALBUPHINE 10 MG/ML (10 ML MDV) IV PRN (09:28)
[2023-10-22 11:27] LABS: Basophils # (A) 0.01 X 10*3/uL (0.00-0.10); Basophils % (A) 0.1 %; Eosinophils # (A) 0 X 10*3/uL (0.04-0.35); Eosinophils % (A) 0 %; HCT 36.8 % (37.2-46.3); HGB 11.6 g/dL (12.0-15.0); Lymphocytes # (A) 0.57 X 10*3/uL (0.90-5.00); Lymphocytes % (A) 5.6 %; MCH 26.5 pg (27.0-32.0); MCHC 31.5 g/dL (32.0-37.0); MCV 84.2 FL (80.0-97.0); Mean Platelet Volume 10.9 FL (9.5-12.2); Monocytes # (A) 1.07 X 10*3/uL (0.20-1.00); Monocytes % (A) 10.4 %; NRBC Per 100 WBC 0 X 10*3/uL (0.00-0.01); Neutrophils # (A) 8.58 X 10*3/uL (1.80-7.70); Neutrophils % (A) 83.5 %; Platelet Count 259 X 10*3/uL (140-440); RBC 4.37 X 10*6/uL (4.10-5.20); RDW 14.9 % (11.5-14.5); WBC 10.27 X 10*3/uL (4.50-10.00)
[2023-10-22 11:40] LABS: ALT 31 U/L (8-44); AST 26 U/L (13-35); Albumin 3.1 g/dL (3.8-4.9); Albumin/Globulin Ratio 1.94 Ratio (1.60-3.17); Alkaline Phosphatase 62 U/L (41-126); BUN/Creat Ratio 7.44 Ratio (12.00-20.00); Blood Urea Nitrogen 6.7 mg/dL (9.0-27.0); Calcium 8.7 mg/dL (8.7-10.3); Carbon Dioxide 20.6 mmol/L (21.6-31.8); Chloride 103 mmol/L (96-109); Globulin 1.6 g/dL (1.6-3.3); Glucose 79 mg/dL (70-110); Potassium 4.5 mmol/L (3.5-5.5); Sodium 136 mmol/L (135-145); Total Bilirubin 0.4 mg/dL (0.3-1.2); Total Protein 4.7 g/dL (6.2-8.2)
--- NOTE | 2023-10-22 12:22 | P.PN ---
Subjective Progress Note Date: 10/22/23 CHIEF COMPLAINT: Obstructing right colon mass HISTORY OF PRESENT ILLNESS: Patient postop day #1 status post right colectomy and partial omentectomy. Patient reports her pain is controlled with epidural. Denies any nausea or vomiting. No flatus. She does complain of itching. Afebrile. WBC 10.27 Hgb 11.6 platelets 259 creatinine 0.9 PHYSICAL EXAM: VITAL SIGNS: Reviewed. GENERAL: Well-developed in no acute distress. HEENT: No sclera icterus. Extraocular movements grossly intact. Moist buccal mucosa. Head is atraumatic, normocephalic. ABDOMEN: Soft. Nondistended. Mild tenderness at incision site. Prevana wound vac intact NEUROLOGIC: Alert and oriented. Cranial nerves II through XII grossly intact. ASSESSMENT: 1. Obstructing right colon mass PLAN: -Continue epidural for pain control -Continue Adrian catheter -Nubain added per surgeon for itching -Continue clear liquid diet -Encourage patient increase activity level -Add incentive spirometer -Continue IV fluids -DVT prophylaxis subcu heparin and GI prophylaxis Pepcid Physician Wire Rigger note has been reviewed by physician. Signing provider agrees with the documented findings, assessment, and plan of care. Objective - Vital Signs Vital signs: Vital Signs Temp 98.4 F 10/22/23 07:27 Pulse 82 10/22/23 07:27 Resp 16 10/22/23 07:27 BP 106/70 10/22/23 07:27 Pulse Ox 92 L 10/22/23 07:27 FiO2 Intake & Output 10/21/23 10/22/23 10/22/23 18:59 06:59 18:59 Intake Total 550 590 Output Total 25 1000 800 Balance 525 -410 -800 Intake: IV 550 Oral 590 Output: Urine 1000 800 Estimated Blood Loss 25 Other: Voiding Method Toilet Indwelling Catheter - Labs CBC & Chem 7: 10/22/23 05:51 10/22/23 05:51 Labs: Abnormal Lab Results - Last 24 Hours (Table) 10/22/23 10/22/23 Range/Units 05:51 05:51 WBC 10.27 H (4.50-10.00) X 10*3/uL Hgb 11.6 L (12.0-15.0) g/dL Hct 36.8 L (37.2-46.3) % MCH 26.5 L (27.0-32.0) pg MCHC 31.5 L (32.0-37.0) g/dL RDW 14.9 H (11.5-14.5) % Neutrophils # 8.58 H (1.80-7.70) X 10*3/uL Lymphocytes # 0.57 L (0.90-5.00) X 10*3/uL Monocytes # 1.07 H (0.20-1.00) X 10*3/uL Eosinophils # 0 L (0.04-0.35) X 10*3/uL Carbon Dioxide 20.6 L (21.6-31.8) mmol/L Anion Gap 12.40 H (4.00-12.00) mmol/L BUN 6.7 L (9.0-27.0) mg/dL BUN/Creatinine Ratio 7.44 L (12.00-20.00) Ratio Total Protein 4.7 L (6.2-8.2) g/dL Albumin 3.1 L (3.8-4.9) g/dL
--- NOTE | 2023-10-22 13:44 | P.PN ---
Subjective Progress Note Date: 10/22/23 H&P Date: 10/21/23 Chief Complaint: Newly diagnosed obstructive neoplasm of ascending colon scheduled for surge This is a 48-year-old female recently diagnosed with obstructive ascending colon neoplasm/colon cancer in September 2023, evaluated by surgery and scheduled for right hemicolectomy, in a patient with past medical history significant for asthma, bipolar, obesity and multiple other medical issues. Abdomen/pelvis CT completed in September 2023 reporting enhancing lesion with apple core appearance in the ascending colon highly concerning for neoplasm, appearance of appendix concerning for acute appendicitis with malignant involvement not excluded, mildly prominent right lower quadrant lymph nodes, could be reactive or early metastasis not excluded. complains of right-sided abdominal pain, nausea vomiting and diarrhea. Denies blood in stools. Afebrile, WBC 3.58, hemoglobin 11.7, platelets 254 .electrolytes and renal function within normal limits .Denies chest pain, palpitations or shortness of breath. Maintaining O2 sats in the high 90s on room air. denies lightheadedness, dizziness or focal deficits. 10/22/2023 status post right colectomy and partial omentectomy, secondary to obstructing right colon mass, postop day #1. Tolerated procedure well. Pain controlled with epidural. complains of some generalized itching, Nubain ordered by general surgery. Denies chest pain, palpitations or shortness of breath. Tolerating clear liquid diet with no nausea vomiting or diarrhea. No flatus. maintaining O2 sats in the mid 90s on room air. Afebrile, WBC 10.27, hemoglobin 11.6, platelets 259. Creatinine stable. Objective - Vital Signs Vital signs: Vital Signs Temp 98.4 F 10/22/23 07:27 Pulse 81 10/22/23 12:27 Resp 18 10/22/23 12:27 BP 97/59 10/22/23 12:27 Pulse Ox 95 10/22/23 12:27 FiO2 Intake & Output 10/21/23 10/22/23 10/22/23 18:59 06:59 18:59 Intake Total 550 590 Output Total 25 1000 800 Balance 525 -410 -800 Intake: IV 550 Oral 590 Output: Urine 1000 800 Estimated Blood Loss 25 Other: Voiding Method Toilet Indwelling Catheter Indwelling Catheter - Exam GENERAL: Alert and oriented x 3, sitting up in chair, NAD HEENT: Atraumatic, normocephalic.Pupils equal round and reactive to light, extraocular movements intact, sclera anicteric, conjunctiva are normal. MMM. NECK: supple, no JVD LUNGS: Unlabored, equal air entry, bilateral breath sounds clear to auscultation. HEART: Regular rate and rhythm without murmurs, rubs or gallops.S1S2 Normal ABDOMEN: Soft, status post surgery, abdominal binder, prevana wound VAC present, infrequent scattered bowel sounds. EXTREMITIES: no edema. No clubbing or cyanosis. NEUROLOGICAL: Cranial nerves II through XII grossly intact. PSYCH: Normal mood, normal affect. SKIN: Warm, Dry, no rashes noted. - Labs CBC & Chem 7: 10/22/23 05:51 10/22/23 05:51 Labs: Abnormal Lab Results - Last 24 Hours (Table) 10/22/23 10/22/23 Range/Units 05:51 05:51 WBC 10.27 H (4.50-10.00) X 10*3/uL Hgb 11.6 L (12.0-15.0) g/dL Hct 36.8 L (37.2-46.3) % MCH 26.5 L (27.0-32.0) pg MCHC 31.5 L (32.0-37.0) g/dL RDW 14.9 H (11.5-14.5) % Neutrophils # 8.58 H (1.80-7.70) X 10*3/uL Lymphocytes # 0.57 L (0.90-5.00) X 10*3/uL Monocytes # 1.07 H (0.20-1.00) X 10*3/uL Eosinophils # 0 L (0.04-0.35) X 10*3/uL Carbon Dioxide 20.6 L (21.6-31.8) mmol/L Anion Gap 12.40 H (4.00-12.00) mmol/L BUN 6.7 L (9.0-27.0) mg/dL BUN/Creatinine Ratio 7.44 L (12.00-20.00) Ratio Total Protein 4.7 L (6.2-8.2) g/dL Albumin 3.1 L (3.8-4.9) g/dL Assessment and Plan Assessment: Obstructive right colon mass status post right colectomy and partial omentectomy, pathology pending Itching secondary to opiates Bipolar disorder Asthma, mild intermittent, stable Plan: Continue on current medication regimen ,monitoring and symptomatic treatment. IV fluid hydration, diet advancement as per general surgery. Dorcas kim aggressive pulmonary toileting with incentive spirometer reinforced. Pain management-epidural.pathology pending. The impression and plan of care has been dictated as directed. : I performed a history and examination of this patient, discussed the same with the dictator. I agree with the dictator's note ,documented as a scribe. Any additional findings or plans will be noted.
--- NOTE | 2023-10-22 14:03 | P.PN ---
Subjective Progress Note Date: 10/22/23 S/P right colectomy and partial omentectomy, path pending. Patient reporting her abdomen is sore. Denies nausea vomiting. No reported flatus or bowel movement. Hemoglobin stable today at 11.6. Objective - Vital Signs Vital signs: Vital Signs Temp 98.4 F 10/22/23 07:27 Pulse 82 10/22/23 07:27 Resp 16 10/22/23 07:27 BP 106/70 10/22/23 07:27 Pulse Ox 92 L 10/22/23 07:27 FiO2 Intake & Output 10/21/23 10/22/23 10/22/23 18:59 06:59 18:59 Intake Total 550 590 Output Total 25 1000 Balance 525 -410 Intake: IV 550 Oral 590 Output: Urine 1000 Estimated Blood Loss 25 Other: Voiding Method Toilet Indwelling Catheter - Constitutional General appearance: Present: average body habitus, no acute distress - EENT Eyes: Present: anicteric sclerae, EOMI ENT: Present: hearing grossly normal - Respiratory Details: breathing even and unlabored - Cardiovascular Details: well-perfused - Gastrointestinal Gastrointestinal Comment(s): wound VAC in place General gastrointestinal: Present: tenderness Localized gastrointestinal: tender: diffuse - Integumentary Integumentary: Absent: cyanotic - Neurologic Neurologic: Present: CNII-XII intact - Musculoskeletal Musculoskeletal: Present: strength equal bilaterally - Psychiatric Psychiatric: Present: A&O x's 3 - Labs CBC & Chem 7: 10/22/23 05:51 10/22/23 05:51 Labs: Abnormal Lab Results - Last 24 Hours (Table) 10/22/23 10/22/23 Range/Units 05:51 05:51 WBC 10.27 H (4.50-10.00) X 10*3/uL Hgb 11.6 L (12.0-15.0) g/dL Hct 36.8 L (37.2-46.3) % MCH 26.5 L (27.0-32.0) pg MCHC 31.5 L (32.0-37.0) g/dL RDW 14.9 H (11.5-14.5) % Neutrophils # 8.58 H (1.80-7.70) X 10*3/uL Lymphocytes # 0.57 L (0.90-5.00) X 10*3/uL Monocytes # 1.07 H (0.20-1.00) X 10*3/uL Eosinophils # 0 L (0.04-0.35) X 10*3/uL Carbon Dioxide 20.6 L (21.6-31.8) mmol/L Anion Gap 12.40 H (4.00-12.00) mmol/L BUN 6.7 L (9.0-27.0) mg/dL BUN/Creatinine Ratio 7.44 L (12.00-20.00) Ratio Total Protein 4.7 L (6.2-8.2) g/dL Albumin 3.1 L (3.8-4.9) g/dL Assessment and Plan (1) Colonic mass Current Visit: Yes Status: Acute Priority: High Code(s): K63.89 - OTHER SPECIFIED DISEASES OF INTESTINE SNOMED Code(s): 673763561 (2) Abdominal pain Current Visit: Yes Status: Acute Priority: High Code(s): R10.9 - UNSPECIFIED ABDOMINAL PAIN SNOMED Code(s): 30646462 Plan: Abdominal pain/colonic mass: Patient reports she has been having ongoing generalized abdominal pain, worse on the right, and nausea vomiting for the last 2-1/2 months, with associated weight loss. She has not underwent colonoscopy in the past. Denies blood in stool/melena. Denies personal history of cancer but father had history of throat cancer. -CT AP Obtained on 10/08/2023 revealed enhancing lesion measuring 2.7 x 2.6 x 2.7 cm with apple core appearance causing luminal narrowing in the ascending colon. With mild associated distention of the colon proximally. Appearance of the appendix concerning for acute appendicitis. Mildly prominent right lower quadrant lymph nodes. Mild/moderate pneumobilia. -CBC reviewed, WBC 3.5, hemoglobin 11.7, platelets 254,000. LFTs and bilirubin WNL. Amylase 44 -General surgery following, s/p right colectomy and partial omentectomy. Wound vac in place, pt tolerated procedure well. Pathology pending -Discussed with pt, pathology typically takes 3-5 days to result. Pending path, any treatment would be on hold for 4-6 weeks to allow adequate recovery time -Will continue to follow and establish outpt f/u in clinic upon discharge Pt updated on POC
--- NOTE | 2023-10-23 10:31 | P.PN ---
Progress Note - Text Progress Note Date: 10/23/23 Postop day 2 from colectomy, epidural catheter inserted for postop pain control. Epidural solution: Ropivacaine 0.1% with Dilaudid 20 mcgs/ml running at 8 mL an hour. Patient pain is well controlled with visual analog score of 1/10. No nausea vomiting, itching, weakness or numbness in the legs or headache reported by the patient. Plan: To continue the epidural infusion at the current rate.
--- NOTE | 2023-10-23 12:01 | P.PN ---
Subjective Progress Note Date: 10/23/23 No acute events. S/P right colectomy and partial omentectomy, path pending. Patient reporting her abdomen is sore. Denies nausea vomiting, tolerating clear liquids. Reports she belched this morning, but has not had flatus or bowel movement. Objective - Vital Signs Vital signs: Vital Signs Temp 98.3 F 10/23/23 07:22 Pulse 92 10/23/23 07:22 Resp 16 10/23/23 07:22 BP 107/70 10/23/23 07:22 Pulse Ox 90 L 10/23/23 07:22 FiO2 Intake & Output 10/22/23 10/23/23 10/23/23 18:59 06:59 18:59 Output Total 1225 800 Balance -1225 -800 Output: Urine 1225 800 Other: Voiding Method Indwelling Catheter Indwelling Catheter - Constitutional General appearance: Present: average body habitus, no acute distress - EENT Eyes: Present: anicteric sclerae, EOMI ENT: Present: hearing grossly normal - Respiratory Details: breathing even and unlabored - Cardiovascular Details: skin warm and dry - Gastrointestinal Gastrointestinal Comment(s): wound VAC in place - Integumentary Integumentary: Absent: cyanotic - Neurologic Neurologic Comment(s): grossly intact - Musculoskeletal Musculoskeletal: Present: strength equal bilaterally - Psychiatric Psychiatric: Present: A&O x's 3 - Labs CBC & Chem 7: 10/22/23 05:51 10/22/23 05:51 Assessment and Plan (1) Colonic mass Current Visit: Yes Status: Acute Priority: High Code(s): K63.89 - OTHER SPECIFIED DISEASES OF INTESTINE SNOMED Code(s): 655584159 (2) Abdominal pain Current Visit: Yes Status: Acute Priority: High Code(s): R10.9 - UNSPECIFIED ABDOMINAL PAIN SNOMED Code(s): 67075575 Plan: Abdominal pain/colonic mass: Patient reports she has been having ongoing generalized abdominal pain, worse on the right, and nausea vomiting for the last 2-1/2 months, with associated weight loss. She has not underwent colonoscopy in the past. Denies blood in stool/melena. Denies personal history of cancer but father had history of throat cancer. -CT AP Obtained on 10/08/2023 revealed enhancing lesion measuring 2.7 x 2.6 x 2.7 cm with apple core appearance causing luminal narrowing in the ascending colon. With mild associated distention of the colon proximally. Appearance of the appendix concerning for acute appendicitis. Mildly prominent right lower quadrant lymph nodes. Mild/moderate pneumobilia. -CBC reviewed, WBC 3.5, hemoglobin 11.7, platelets 254,000. LFTs and bilirubin WNL. Amylase 44 -General surgery following, s/p right colectomy and partial omentectomy. Wound vac in place, pt tolerated procedure well. Pathology pending -Discussed with pt, pathology typically takes 3-5 days to result. Pending path, any treatment would be on hold for 4-6 weeks to allow adequate recovery time -Will continue to follow and establish outpt f/u in clinic upon discharge Pt updated on POC
[2023-10-23] MEDS: METOCLOPRAMIDE 5 MG/ML 2 ML VIAL IVP PRN (14:47)
--- NOTE | 2023-10-23 14:52 | P.PN ---
Subjective Progress Note Date: 10/23/23 CHIEF COMPLAINT: Obstructing right colon mass HISTORY OF PRESENT ILLNESS: Patient postop day #2 status post right colectomy and partial omentectomy. Patient reports her pain is controlled. She did have some nausea earlier. No bowel movement no flatus. Afebrile. No new labs PHYSICAL EXAM: VITAL SIGNS: Reviewed. GENERAL: Well-developed in no acute distress. ABDOMEN: Soft. Nondistended. Mild tenderness at incision site. Prevana wound vac intact NEUROLOGIC: Alert and oriented. Cranial nerves II through XII grossly intact. ASSESSMENT: 1. Obstructing right colon mass PLAN: -Continue epidural for pain control -Continue Adrian catheter -Epidural and Adrian catheter to be discontinued tomorrow -Continue clear liquid diet -Encourage patient increase activity level -Continue incentive spirometer -Continue IV fluids -DVT prophylaxis subcu heparin and GI prophylaxis Pepcid Physician Icebox Worker note has been reviewed by physician. Signing provider agrees with the documented findings, assessment, and plan of care. Objective - Vital Signs Vital signs: Vital Signs Temp 98.5 F 10/23/23 12:15 Pulse 83 10/23/23 12:15 Resp 16 10/23/23 12:15 BP 99/67 10/23/23 12:15 Pulse Ox 90 L 10/23/23 12:15 FiO2 Intake & Output 10/22/23 10/23/23 10/23/23 18:59 06:59 18:59 Output Total 1225 800 650 Balance -1225 -800 -650 Output: Urine 1225 800 650 Other: Voiding Method Indwelling Catheter Indwelling Catheter Indwelling Catheter - Labs CBC & Chem 7: 10/22/23 05:51 10/22/23 05:51
[2023-10-23] MEDS ORDERED: IPRATROPIUM-ALBUTEROL 3 ML NEB INHALATION PRN (17:05)
--- NOTE | 2023-10-23 17:10 | P.PN ---
Subjective Progress Note Date: 10/23/23 H&P Date: 10/21/23 Chief Complaint: Newly diagnosed obstructive neoplasm of ascending colon scheduled for surge This is a 48-year-old female recently diagnosed with obstructive ascending colon neoplasm/colon cancer in September 2023, evaluated by surgery and scheduled for right hemicolectomy, in a patient with past medical history significant for asthma, bipolar, obesity and multiple other medical issues. Abdomen/pelvis CT completed in September 2023 reporting enhancing lesion with apple core appearance in the ascending colon highly concerning for neoplasm, appearance of appendix concerning for acute appendicitis with malignant involvement not excluded, mildly prominent right lower quadrant lymph nodes, could be reactive or early metastasis not excluded. complains of right-sided abdominal pain, nausea vomiting and diarrhea. Denies blood in stools. Afebrile, WBC 3.58, hemoglobin 11.7, platelets 254 .electrolytes and renal function within normal limits .Denies chest pain, palpitations or shortness of breath. Maintaining O2 sats in the high 90s on room air. denies lightheadedness, dizziness or focal deficits. 10/22/2023 status post right colectomy and partial omentectomy, secondary to obstructing right colon mass, postop day #1. Tolerated procedure well. Pain controlled with epidural. complains of some generalized itching, Nubain ordered by general surgery. Denies chest pain, palpitations or shortness of breath. Tolerating clear liquid diet with no nausea vomiting or diarrhea. No flatus. maintaining O2 sats in the mid 90s on room air. Afebrile, WBC 10.27, hemoglobin 11.6, platelets 259. Creatinine stable. 10/23/2023 status post right colectomy and partial omentectomy, postop day #2, pathology pending. Reports sore but pain controlled with epidural. Denies flatus/positive burping. Up in chair yesterday and again today. Incentive spirometer up to 1800. Denies chest pain, palpitations or shortness of breath. Maintaining O2 sats in the low 90s. tolerating clear liquid diet, nausea improved. Denies diarrhea or bowel movement. Afebrile. Blood pressures soft. Objective - Vital Signs Vital signs: Vital Signs Temp 98.5 F 10/23/23 12:15 Pulse 83 10/23/23 12:15 Resp 16 10/23/23 12:15 BP 99/67 10/23/23 12:15 Pulse Ox 90 L 10/23/23 12:15 FiO2 Intake & Output 10/22/23 10/23/23 10/23/23 18:59 06:59 18:59 Output Total 1225 800 650 Balance -1225 -800 -650 Output: Urine 1225 800 650 Other: Voiding Method Indwelling Catheter Indwelling Catheter Indwelling Catheter - Exam GENERAL: Alert and oriented x 3, sitting up in bed, NAD HEENT: Atraumatic, normocephalic.Pupils equal round and reactive to light, sclera anicteric, conjunctiva are normal. MMM. NECK: supple, no JVD LUNGS: Unlabored, equal air entry, bilateral breath sounds clear to auscultation with bilateral bases diminished. HEART: Regular rate and rhythm without murmurs, rubs or gallops.S1S2 Normal ABDOMEN: Soft, status post surgery, abdominal binder, prevana wound VAC present, hypoactive bowel sounds. EXTREMITIES: no edema. No clubbing or cyanosis. NEUROLOGICAL: Cranial nerves II through XII grossly intact. SKIN: Warm, Dry. - Labs CBC & Chem 7: 10/22/23 05:51 10/22/23 05:51 Assessment and Plan Assessment: Obstructive right colon mass status post right colectomy and partial omentectomy, pathology pending Atelectasis ,postoperative, expected outcome Itching secondary to opiates, improved Bipolar disorder Asthma, mild intermittent, stable Plan: Continue on current medication regimen ,monitoring and symptomatic treatment. Aggressive pulmonary toileting with incentive spirometer reinforced. Nebulized bronchodilators ordered. IV fluid hydration, diet advancement as per general surgery. Pathology pending. Epidural and Adrian scheduled to be discontinued tomorrow as per general surgery. The impression and plan of care has been dictated as directed. : I performed a history and examination of this patient, discussed the same with the dictator. I agree with the dictator's note ,documented as a scribe. Any additional findings or plans will be noted.
[2023-10-23] MEDS: IPRATROPIUM-ALBUTEROL 3 ML NEB INHALATION SCH (19:42)
--- NOTE | 2023-10-24 07:56 | P.PN ---
Progress Note - Text Progress Note Date: 10/24/23 Patient was seen and evaluated at bedside. Postop day # 3 status post Right colectomy, and Partial omentectomy . Patient is comfortably lying on the bed. Rated pain levels are 2 out of 10 in severity. Moving extremities well without any difficulty. He denied any red flag symptoms, pain over the catheter site. Physical exam: Vital signs: stable, afebrile Catheter site: Clean, and intact Dressing. no tenderness over the catheter area. Moving lower extremities without difficulty. Assessment: Acute postoperative pain secondary to Right colectomy, and Partial omentectomy Plan: Epidural catheter removed in total, patient had heparin more than 6 hours ago. Spoke to the nurse hold heparin for couple of hours after epidural catheter removed. Call anesthesia as needed
[2023-10-24] MEDS ORDERED: HYDROcodone/APAP 5-325MG 1 EACH TAB PO PRN (09:11)
[2023-10-24 10:51] LABS: Basophils # (A) 0.01 X 10*3/uL (0.00-0.10); Basophils % (A) 0.1 %; Eosinophils # (A) 0.06 X 10*3/uL (0.04-0.35); Eosinophils % (A) 0.9 %; HCT 35.2 % (37.2-46.3); HGB 11.2 g/dL (12.0-15.0); Lymphocytes # (A) 0.83 X 10*3/uL (0.90-5.00); Lymphocytes % (A) 12.4 %; MCH 26.4 pg (27.0-32.0); MCHC 31.8 g/dL (32.0-37.0); MCV 82.8 FL (80.0-97.0); Mean Platelet Volume 10.6 FL (9.5-12.2); Monocytes # (A) 0.89 X 10*3/uL (0.20-1.00); Monocytes % (A) 13.3 %; NRBC Per 100 WBC 0 X 10*3/uL (0.00-0.01); Neutrophils # (A) 4.86 X 10*3/uL (1.80-7.70); Platelet Count 240 X 10*3/uL (140-440); RBC 4.25 X 10*6/uL (4.10-5.20); RDW 15.7 % (11.5-14.5); WBC 6.67 X 10*3/uL (4.50-10.00)
[2023-10-24 11:11] LABS: BUN/Creat Ratio 7.43 Ratio (12.00-20.00); Blood Urea Nitrogen 5.2 mg/dL (9.0-27.0); Calcium 8.8 mg/dL (8.7-10.3); Carbon Dioxide 20.9 mmol/L (21.6-31.8); Chloride 108 mmol/L (96-109); Glucose 99 mg/dL (70-110); Potassium 4.3 mmol/L (3.5-5.5); Sodium 138 mmol/L (135-145)
--- NOTE | 2023-10-24 13:22 | P.PN ---
Subjective Progress Note Date: 10/24/23 CHIEF COMPLAINT: Obstructing right colon mass HISTORY OF PRESENT ILLNESS: Patient postop day #3 status post right colectomy and partial omentectomy. Patient's epidural and Adrian catheter were discontinued today. She did have diarrhea. Reports no blood in the stools. She reports her pain is controlled. Afebrile. WBC 6.67 Hgb 11.2 PHYSICAL EXAM: VITAL SIGNS: Reviewed. GENERAL: Well-developed in no acute distress. ABDOMEN: Soft. Nondistended. Mild tenderness at incision site. Prevana wound vac intact NEUROLOGIC: Alert and oriented. Cranial nerves II through XII grossly intact. ASSESSMENT: 1. Obstructing right colon mass PLAN: -Advance diet to full liquids -Add [place] for oral pain medication -Discontinue IV fluids -Encourage patient increase activity level -Continue incentive spirometer -Pathology pending -Consult physical therapy to ambulate patient -Anticipate possible discharge tomorrow -DVT prophylaxis subcu heparin and GI prophylaxis Pepcid Physician Stem Processing Machine Operator note has been reviewed by physician. Signing provider agrees with the documented findings, assessment, and plan of care. Objective - Vital Signs Vital signs: Vital Signs Temp 97.9 F 10/24/23 12:50 Pulse 88 10/24/23 12:50 Resp 24 10/24/23 12:50 BP 135/86 10/24/23 12:50 Pulse Ox 95 10/24/23 12:50 FiO2 21 10/23/23 19:42 Intake & Output 10/23/23 10/24/23 10/24/23 18:59 06:59 18:59 Intake Total 247.2 Output Total 850 300 840 Balance -602.8 -300 -840 Intake: Intake, IV Titration 247.2 Amount Ropivacaine 250 mg 247.2 Hydromorphone (Pf) 5 mg In Sodium Chloride 0.9% 200 ml @ Per Protocol EPIDURAL .Q0M PRN Rx#: [id number] Output: Urine 850 300 840 Uretheral (Adrian) 420 Other: Voiding Method Indwelling Catheter Indwelling Catheter Indwelling Catheter # Bowel Movements 4 - Labs CBC & Chem 7: 10/24/23 06:12 10/24/23 06:12 Labs: Abnormal Lab Results - Last 24 Hours (Table) 10/24/23 10/24/23 Range/Units 06:12 06:12 Hgb 11.2 L (12.0-15.0) g/dL Hct 35.2 L (37.2-46.3) % MCH 26.4 L (27.0-32.0) pg MCHC 31.8 L (32.0-37.0) g/dL RDW 15.7 H (11.5-14.5) % Lymphocytes # 0.83 L (0.90-5.00) X 10*3/uL Carbon Dioxide 20.9 L (21.6-31.8) mmol/L BUN 5.2 L (9.0-27.0) mg/dL BUN/Creatinine Ratio 7.43 L (12.00-20.00) Ratio
--- NOTE | 2023-10-24 15:11 | P.DS ---
Providers Date of admission: 10/20/23 16:46 Expected date of discharge: 10/24/23 Attending physician: Carlito Gutierres Consults: 10/20/23 16:46 Consult Physician Routine Consulting Provider: Jayden Plata Consult Reason/Comments: known Do you want consulting provider notified?: Yes 10/20/23 18:11 Consult Physician Routine Consulting Provider: Augustine Lawson Consult Reason/Comments: Planned colectomy/neoplasm Do you want consulting provider notified?: Yes, Notify in am Primary care physician: [facility] Course: Final Diagnoses: Obstructive right colon mass status post right colectomy and partial omentectomy, pathology pending Atelectasis ,postoperative, expected outcome Itching secondary to opiates, improved Bipolar disorder Asthma, mild intermittent, stable Hospital course: This is a 48-year-old female recently diagnosed with obstructive ascending colon neoplasm/colon cancer in September 2023, evaluated by surgery and scheduled for right hemicolectomy, in a patient with past medical history significant for asthma, bipolar, obesity and multiple other medical issues. Abdomen/pelvis CT completed in September 2023 reporting enhancing lesion with apple core appearance in the ascending colon highly concerning for neoplasm, appearance of appendix concerning for acute appendicitis with malignant involvement not excluded, mildly prominent right lower quadrant lymph nodes, could be reactive or early metastasis not excluded. complains of right-sided abdominal pain, nausea vomiting and diarrhea. Denies blood in stools. Afebrile, WBC 3.58, hemoglobin 11.7, platelets 254 .electrolytes and renal function within normal limits .Denies chest pain, palpitations or shortness of breath. Maintaining O2 sats in the high 90s on room air. denies lightheadedness, dizziness or focal deficits. 10/22/2023 status post right colectomy and partial omentectomy, secondary to obstructing right colon mass, postop day #1. Tolerated procedure well. Pain controlled with epidural. complains of some generalized itching, Nubain ordered by general surgery. Denies chest pain, palpitations or shortness of breath. Tolerating clear liquid diet with no nausea vomiting or diarrhea. No flatus. maintaining O2 sats in the mid 90s on room air. Afebrile, WBC 10.27, hemoglobin 11.6, platelets 259. Creatinine stable. 10/23/2023 status post right colectomy and partial omentectomy, postop day #2, pathology pending. Reports sore but pain controlled with epidural. Denies flatus/positive burping. Up in chair yesterday and again today. Incentive spirometer up to 1800. Denies chest pain, palpitations or shortness of breath. Maintaining O2 sats in the low 90s. tolerating clear liquid diet, nausea improved. Denies diarrhea or bowel movement. Afebrile. Blood pressures soft. 10/24/2023 significant clinical improvement. Epidural and Adrian catheter discontinued. Pain controlled. Spontaneous voiding, positive nonbloody bowel movement today. Tolerating diet advancement to full liquids. Denies nausea, vomiting. Ambulated to nursing desk last night, tolerating exertion well. Denies lightheadedness, dizziness or focal deficits.. Denies chest pain, palpitations or shortness of breath. Maintaining O2 sats in the mid 90s on room air. Afebrile, normal WBC. Hemoglobin 11.2, platelets 240. Patient will be discharged home today in a stable condition with guarded prognosis pending PT evaluation, discharge recommendations including pain management, surgical wound care and clearance per general surgery. The impression and plan of care has been dictated as directed. : I performed a history and examination of this patient, discussed the same with the dictator. I agree with the dictator's note ,documented as a scribe. Any additional findings or plans will be noted. Patient Condition at Discharge: Stable Plan - Discharge Summary Discharge Rx Participant: Yes New Discharge Prescriptions: New Famotidine [Pepcid] 20 mg PO BID #60 tab Continue hydrOXYzine HCL [Atarax] 25 mg PO TID PRN PRN Reason: Anxiety lamoTRIgine [lamoTRIgine ER] 100 mg PO DAILY oxyCODONE-APAP 7.5-325MG [Percocet 7.5-325 mg] 1 - 2 tab PO DIRECTED PRN PRN Reason: Pain QUEtiapine [SEROquel] 50 - 100 mg PO HS PRN PRN Reason: SLEEP Nystatin 100,000Unit/gm Cream [Mycostatin Cream] 1 applic TOPICAL BID PRN PRN Reason: Rash Discharge Medication List Nystatin 100,000Unit/gm Cream [Mycostatin Cream] 1 applic TOPICAL BID PRN 10/20/23 [History] QUEtiapine [SEROquel] 50 - 100 mg PO HS PRN 10/20/23 [History] hydrOXYzine HCL [Atarax] 25 mg PO TID PRN 10/20/23 [History] lamoTRIgine [lamoTRIgine ER] 100 mg PO DAILY 10/20/23 [History] oxyCODONE-APAP 7.5-325MG [Percocet 7.5-325 mg] 1 - 2 tab PO DIRECTED PRN 10/20/23 [History] Famotidine [Pepcid] 20 mg PO BID #60 tab 10/24/23 [Rx] Follow up Appointment(s)/Referral(s): Carlito Gutierres Jr, [Primary Care Provider] - 3 Days
[2023-10-24 21:00] VITALS: RESP 16
[2023-10-25 02:28] VITALS: PULSE 92
[2023-10-25 07:46] VITALS: BP 117/80; TEMP 98.3
--- NOTE | 2023-10-25 10:42 | P.PN ---
Subjective Progress Note Date: 10/25/23 CHIEF COMPLAINT: Obstructing right colon mass HISTORY OF PRESENT ILLNESS: Patient postop day #4 status post right colectomy and partial omentectomy. Patient's pain is controlled. She is tolerating diet. She did have bowel movement. Afebrile. She has been up and ambulating. She is stable for discharge. PHYSICAL EXAM: VITAL SIGNS: Reviewed. GENERAL: Well-developed in no acute distress. ABDOMEN: Soft. Nondistended. Prevana wound vac intact NEUROLOGIC: Alert and oriented. Cranial nerves II through XII grossly intact. ASSESSMENT: 1. Obstructing right colon mass 2. Pathology report positive for adenocarcinoma PLAN: -Patient can be discharged from surgical standpoint -Patient to follow-up with oncology outpatient -Advance diet as tolerated -Remove Prevana dressing on 10/28/23 Physician Returned Goods Repairer note has been reviewed by physician. Signing provider agrees with the documented findings, assessment, and plan of care. Objective - Vital Signs Vital signs: Vital Signs Temp 98.3 F 10/25/23 07:20 Pulse 92 10/25/23 08:11 Resp 16 10/25/23 07:20 BP 117/80 10/25/23 07:20 Pulse Ox 97 10/25/23 08:10 FiO2 21 10/24/23 20:58 Intake & Output 10/24/23 10/25/23 10/25/23 18:59 06:59 18:59 Intake Total 120 Output Total 840 Balance -840 120 Intake: Oral 120 Output: Urine 840 Uretheral (Adrian) 420 Other: Voiding Method Indwelling Catheter Toilet Toilet # Voids 2 3 # Bowel Movements 1 - Labs CBC & Chem 7: 10/24/23 06:12 10/24/23 06:12 Labs: Abnormal Lab Results - Last 24 Hours (Table) 10/24/23 10/24/23 Range/Units 06:12 06:12 Hgb 11.2 L (12.0-15.0) g/dL Hct 35.2 L (37.2-46.3) % MCH 26.4 L (27.0-32.0) pg MCHC 31.8 L (32.0-37.0) g/dL RDW 15.7 H (11.5-14.5) % Lymphocytes # 0.83 L (0.90-5.00) X 10*3/uL Carbon Dioxide 20.9 L (21.6-31.8) mmol/L BUN 5.2 L (9.0-27.0) mg/dL BUN/Creatinine Ratio 7.43 L (12.00-20.00) Ratio
--- NOTE | 2023-10-25 11:01 | P.PN ---
Subjective Progress Note Date: 10/25/23 No acute events. S/P right colectomy and partial omentectomy. Patient reporting her abdomen is sore, but denies abdominal pain, nausea vomiting. Tolerating oral intake. Patient is passing flatus and is having diarrhea. Objective - Vital Signs Vital signs: Vital Signs Temp 98.3 F 10/25/23 07:20 Pulse 92 10/25/23 08:11 Resp 16 10/25/23 07:20 BP 117/80 10/25/23 07:20 Pulse Ox 97 10/25/23 08:10 FiO2 21 10/24/23 20:58 Intake & Output 10/24/23 10/25/23 10/25/23 18:59 06:59 18:59 Intake Total 120 Output Total 840 Balance -840 120 Intake: Oral 120 Output: Urine 840 Uretheral (Adrian) 420 Other: Voiding Method Indwelling Catheter Toilet Toilet # Voids 2 3 # Bowel Movements 1 - Constitutional General appearance: Present: average body habitus, no acute distress - EENT Eyes: Present: anicteric sclerae, EOMI ENT: Present: hearing grossly normal - Respiratory Details: breathing is even and unlabored - Cardiovascular Details: skin warm and dry - Gastrointestinal Gastrointestinal Comment(s): wound vac in place - Integumentary Integumentary: Absent: cyanotic, jaundiced - Musculoskeletal Musculoskeletal: Present: strength equal bilaterally - Psychiatric Psychiatric: Present: A&O x's 3 - Labs CBC & Chem 7: 10/24/23 06:12 10/24/23 06:12 Labs: Abnormal Lab Results - Last 24 Hours (Table) 10/24/23 Range/Units 06:12 Carbon Dioxide 20.9 L (21.6-31.8) mmol/L BUN 5.2 L (9.0-27.0) mg/dL BUN/Creatinine Ratio 7.43 L (12.00-20.00) Ratio Assessment and Plan (1) Colonic mass Current Visit: Yes Status: Acute Priority: High Code(s): K63.89 - OTHER SPECIFIED DISEASES OF INTESTINE SNOMED Code(s): 526034845 (2) Abdominal pain Current Visit: Yes Status: Acute Priority: High Code(s): R10.9 - UNSPECIFIED ABDOMINAL PAIN SNOMED Code(s): 44176970 (3) Colon adenocarcinoma Current Visit: Yes Status: Acute Priority: High Code(s): C18.9 - MALIGNANT NEOPLASM OF COLON, UNSPECIFIED SNOMED Code(s): 389088605 Plan: Colon adenocarcinoma: Patient reports she has been having ongoing generalized abdominal pain, worse on the right, and nausea vomiting for the last 2-1/2 months, with associated weight loss. She has not underwent colonoscopy in the past. Denies blood in stool/melena. Denies personal history of cancer but father had history of throat cancer. -CT AP Obtained on 10/08/2023 revealed enhancing lesion measuring 2.7 x 2.6 x 2.7 cm with apple core appearance causing luminal narrowing in the ascending colon. With mild associated distention of the colon proximally. Appearance of the appendix concerning for acute appendicitis. Mildly prominent right lower quadrant lymph nodes. Mild/moderate pneumobilia. -CBC reviewed, WBC 3.5, hemoglobin 11.7, platelets 254,000. LFTs and bilirubin WNL. Amylase 44 -General surgery following, s/p right colectomy and partial omentectomy. Wound vac in place, pt tolerated procedure well. -pathology positive for invasive moderately differentiated colonic carcinoma invading into pericolonic adipose tissue. Margins negative. Twenty eight lymph nodes negative for metastasis was one mesenteric tumor deposit. Results and treatments discussed with patient -Discussed with pt that she would be recommended for adjuvant chemo, but treatment would be on hold for 4-6 weeks to allow adequate recovery time -Will schedule clinic f/u in the next couple weeks to further discuss goals of care and treatment options Pt updated on POC and is agreeable
== END 2023-10-25 10:57 | disposition home health service (06) | DRG 231 ==
LOC: EC 13:48 → 5NMEDONC 16:46
PROVIDERS: ADMIT Family Medicine; ATTEND Family Medicine
PROC: 0DBU0ZZ Excision of Omentum, Open Approach (ICD-10-PCS; principal; 2023-10-21 13:40)
PROC: 0DTF0ZZ Resection of Right Large Intestine, Open Approach (ICD-10-PCS; principal; 2023-10-21 13:40)
DX: C18.2 Malignant neoplasm of ascending colon (principal); F31.9 Bipolar disorder, unspecified; F41.9 Anxiety disorder, unspecified; J45.20 Mild intermittent asthma, uncomplicated; J98.11 Atelectasis; L29.9 Pruritus, unspecified; R63.4 Abnormal weight loss; R11.2 Nausea with vomiting, unspecified; T40.605A Adverse effect of unspecified narcotics, initial encounter; R59.0 Localized enlarged lymph nodes; E66.9 Obesity, unspecified; Z68.32 Body mass index [BMI] 32.0-32.9, adult; Z86.14 Personal history of Methicillin resistant Staphylococcus aureus infection; Z28.311 Partially vaccinated for COVID-19; Z28.21 Immunization not carried out because of patient refusal; Z79.899 Other long term (current) drug therapy
CPT/HCPCS: 36415; 80048; 80053; 82150; 83735; 84100; 84703; 85025; 88305; 88309; 88341; 88342; 94640; 94760; 96374; 99285

== ENCOUNTER 2024-02-14 06:29 | Day surgery (SDC) | payer OTHER ==
[2024-02-14 07:07] VITALS: RESP 16; TEMP 97.7
[2024-02-14 07:32] LABS: African American GFR (CKD) >90 (>60 ml/min/1.73 sqM); Anion Gap 6 mmol/L; Blood Urea Nitrogen 13 mg/dL (7-17); Carbon Dioxide 20 mmol/L (22-30); Chloride 113 mmol/L (98-107); Non-African American GFR(CKD) >90 (>60 ml/min/1.73 sqM); Potassium 3.9 mmol/L (3.5-5.1); Sodium 139 mmol/L (137-145)
[2024-02-14 09:48] VITALS: BP 120/62; PULSE 82
--- NOTE | 2024-02-14 09:54 | XR ---
EXAMINATION TYPE: XR chest 1V DATE OF EXAM: 02/14/2024 9:48 AM CLINICAL INDICATION:Female, 48 years old with history of For placement of PICC line in ESU; [facility] COMPARISON: Chest radiographs from 08/30/2023 TECHNIQUE: XR chest 1V Frontal view of the chest. FINDINGS: Lungs/Pleura: There is no evidence of pleural effusion, focal consolidation, or pneumothorax. Pulmonary vascularity: Unremarkable. Heart/mediastinum: Cardiomediastinal silhouette is unremarkable. Musculoskeletal: No acute osseous pathology. Right PICC with distal tip at the superior cavoatrial junction\ IMPRESSION: 1. Right PICC with distal tip at the superior cavoatrial junction 2. No acute cardiopulmonary disease/process.
== END 2024-02-14 10:15 | disposition home or self-care (01) ==
LOC: CATHCVL 06:29
PROVIDERS: ATTEND Internal Medicine Hematology & Oncology
DX: C18.2 Malignant neoplasm of ascending colon (principal)
CPT/HCPCS: 36573; 80051; 82565; 84520; 71045; C1751

== ENCOUNTER → 2024-02-28 | Outpatient (CLI) | payer OTHER ==
--- NOTE | 2024-03-01 10:02 | US ---
EXAMINATION TYPE: US venous doppler duplex UE RT DATE OF EXAM: 02/28/2024 COMPARISON: NONE CLINICAL INDICATION: Female, 48 years old with history of M79.601 PAIN IN RIGHT ARM; PICC line right arm x 2 weeks. Edema, pain, redness right arm for 1 week SIDE PERFORMED: right Right Arm: limitations due to PICC line bandage. no evidence of DVT as visualized. appears to be thro mbosis right basilic vein, PICC line visualized IMPRESSION: No evidence of DVT. Superficial vein thrombosis as noted.
== END | disposition home or self-care (01) ==
LOC: RADUSWWP 14:11
PROVIDERS: ATTEND Internal Medicine Hematology & Oncology
DX: C18.2 Malignant neoplasm of ascending colon (principal); M79.601 Pain in right arm; Z71.3 Dietary counseling and surveillance

== ENCOUNTER → 2024-03-03 | Outpatient (CLI) | payer OTHER ==
--- NOTE | 2024-03-03 08:55 | US ---
EXAMINATION TYPE: US venous doppler duplex UE RT DATE OF EXAM: 03/03/2024 COMPARISON: US 02/28/2024 CLINICAL INDICATION: Female, 48 years old with history of M79.661 PAIN IN RIGHT LOWER LEG; Patient ta kes aspirin. Hx SVT in basilic vein on 02/28/2024. SIDE PERFORMED: Right Right Arm: Pararescue Manager notes: No evidence of DVT. Exam is limited due to bandage. *Internal echoes seen again within superficial basilic vein. Lack of color flow within basilic vein. This vein does not compress within a segment above patient's bandage. IMPRESSION: 1. Redemonstrated SVT involving the basilic vein with PICC line visualized. 2. Otherwise, no evidence for DVT within the right upper extremity.
--- NOTE | 2024-03-03 14:14 | US ---
EXAMINATION TYPE: US venous doppler duplex LE RT DATE OF EXAM: 03/03/2024 8:45 AM COMPARISON: US 2019 CLINICAL INDICATION: Female, 48 years old with history of M79.661 PAIN IN RIGHT LOWER LEG; No hx of D VT. Hx DVT rt arm. Patient takes aspirin. Pain and swelling in right leg x 3 days. SIDE PERFORMED: Right TECHNIQUE: The lower extremity deep venous system is examined utilizing real time linear array sonog jessica with graded compression, doppler sonography and color-flow sonography. VESSELS IMAGED: Common Femoral Vein Deep Femoral Vein Greater Saphenous Vein * Femoral Vein Popliteal Vein Small Saphenous Vein * Proximal Calf Veins Posterior tibial veins (* superficial vessels) Right Leg: No evidence of DVT. IMPRESSION: No evidence for DVT within the right lower extremity.
== END | disposition home or self-care (01) ==
LOC: RADUSWWP 07:58
PROVIDERS: ATTEND Internal Medicine Hematology & Oncology
DX: M79.661 Pain in right lower leg (principal); I47.10 Supraventricular tachycardia, unspecified; M79.621 Pain in right upper arm; M79.89 Other specified soft tissue disorders

== ENCOUNTER → 2024-06-16 | Outpatient (CLI) | payer OTHER ==
--- NOTE | 2024-06-16 11:50 | US ---
EXAMINATION TYPE: US thyroid st tissue head/neck DATE OF EXAM: 06/16/2024 COMPARISON: NONE CLINICAL INDICATION: Female, 48 years old with history of K22.0 ACHALASIA OF CARDIA; achalasia, no pr evious TECHNIQUE: Grayscale and color Doppler imaging of the thyroid gland. FINDINGS: GLAND SIZE: Right Lobe: 5.5 x 1.7 x 1.9cm Overall Parenchyma: heterogeneous Left Lobe: 4.4 x 1.8 x 1.8 cm Overall Parenchyma: heterogeneous Isthmus Thickness: 0.4 cm NODULES RIGHT: # of nodules measured on right: 1 1. 1.0 X 0.9 x 0.9 cm, upper mid, solid or almost completely solid, isoechoic nodule, which is wide r than tall, with smooth margins, without echogenic foci. TR 3. Prior size: no previous LEFT: # of nodules measured on left: 1 1. 1.1 X 0.6 x 0.8 cm, lower medial, solid or almost completely solid, hypoechoic nodule, which is wider than tall, with smooth margins, without echogenic foci. TR 4. Prior size: no previous 2. 1.2 x 1.0 x 0.6 cm, upper medial, solid or almost completely solid, hypoechoic nodule, which is wi jasvir than tall, with smooth margins, without echogenic foci. TR 4. ISTHMUS: # of nodules measured in the isthmus: 0 Bilateral neck scanned, no evidence of lymphadenopathy. IMPRESSION: Bilateral thyroid nodules as described above. ACR TI-RADS LEVEL: TR-RADS 4 - Moderately Suspicious: Follow if > 1 cm, FNA if > 1.5 cm *Highest TI-RADS level nodule reported [facility], , 06/16/2024 11:48 AM
--- NOTE | 2024-06-16 12:30 | US ---
EXAMINATION TYPE: US pelvic complete DATE OF EXAM: 06/16/2024 COMPARISON: CT abdomen and pelvis 10/08/2023 CLINICAL INDICATION: Female, 48 years old, assessing for mets; h/o colon cancer and 3 C-sections.G4 P 4. TECHNIQUE: TA. Transabdominal sonographic images of the pelvis were acquired. Patient did not wan t TV approach when offered FINDINGS: Date of LMP: 06-13-2024 EXAM MEASUREMENTS: Uterus: 12.1 x 8.0 x 7.7cm Endometrial Stripe: 3.1 cm Right Ovary: not seen Left Ovary: not seen 1. Uterus: Enlarged. Retroverted anechoic areas within cervix, larger area= 2.7 x 2.5 x 2.2 cm. 2. Endometrium: thickened for secretory phase 3. Right Ovary: not seen, bowel gas obscures adnexa 4. Left Ovary: not seen, bowel gas obscures adnexa 5. Bilateral Adnexa: bowel gas, wnl 6. Posterior cul-de-sac: Appears wnl Enlarged retroverted uterus without focal lesion. Nabothian cysts within the cervix. Thickened endome trium measuring up to 3.1 cm. Both ovaries are not visualized due to overlying bowel gas. No free flu id. IMPRESSION: 1. Nonspecific thickened endometrium which is more than expected for secretory phase. Could be seen with endometrial hyperplasia versus polyp versus carcinoma versus other etiologies. Consider follow-u p ultrasound in 6 to 12 weeks. 2. Both ovaries not visualized due to overlying bowel gas. [facility], , 06/16/2024 12:28 PM
--- NOTE | 2024-06-16 12:34 | US ---
EXAMINATION TYPE: US abdomen complete DATE OF EXAM: 06/16/2024 COMPARISON: CT 2023 CLINICAL INDICATION: Female, 48 years old with history of K43.9 ENTRAL HERNIA; h/o colon cancer, just finished chemo, cholecystectomy TECHNIQUE: Grayscale and color Doppler imaging of the abdomen was performed. FINDINGS: EXAM MEASUREMENTS: Liver Length: 16.6 cm Gallbladder Wall: Surgically absent CBD: 0.9 cm Spleen: 14.1 cm Right Kidney: 11.1 x 6.1 x 5.1 cm Left Kidney: 11.0 x 6.7 x 5.1 cm SUPERVISOR CLAIMS NOTES: Exam is very limited due to gas. Pancreas: Obscured. Liver: *Appears very coarse in echotexture/ heterogeneous. Limited. Gallbladder: Surgically absent CBD: Appears wnl post-cholecystectomy. Spleen: *Enlarged. Right Kidney: No hydronephrosis or masses seen Left Kidney: No hydronephrosis or masses seen Upper IVC: Appears wnl Abd Aorta: Proximal: 2.5 x 2.8 cm. Appears ectatic. Mid, distal aorta and iliacs were obscured. Scanned right abdomen at patient's area of concern/bulge: no abnormalities seen by ultrasound. IMPRESSION: 1. Coarse heterogenous appearance of the liver with increased attenuation most consistent with hepat ic steatosis. No definitive focal lesion identified. 2. Postcholecystectomy. 3. Borderline-enlarged spleen. 4. Ectatic appearance of the proximal abdominal aorta measuring up to 2.8 cm. The mid and distal por tions were obscured by overlying bowel gas. 5. No ultrasound evidence for abnormality in the patient's region of concern of the right abdomen. [facility], , 06/16/2024 12:32 PM
== END | disposition home or self-care (01) ==
LOC: RADUSWWP 08:01
PROVIDERS: ATTEND Family Medicine
CPT/HCPCS: 76536; 76700; 76856

== ENCOUNTER → 2024-07-01 | Outpatient (CLI) | payer OTHER ==
[2024-07-01 10:39] LABS: African American GFR (CKD) >90 (>60 ml/min/1.73 sqM); Blood Urea Nitrogen 9 mg/dL (7-17); Non-African American GFR(CKD) >90 (>60 ml/min/1.73 sqM)
--- NOTE | 2024-07-01 12:26 | CT ---
EXAMINATION TYPE: CT ChestAbdPelvis w con CT DLP: 1696 mGycm, Automated exposure control for dose reduction was used. DATE OF EXAM: 07/01/2024 12:07 PM COMPARISON: Pelvic ultrasound 06/16/2024, abdominal ultrasound 06/16/2024, CT abdomen and pelvis 10/08, 08/30/2023, CTA chest 03/23/2019 CLINICAL INDICATION:Female, 49 years old with history of C18.2 COLON CANCER; [facility], f/u colon ca Technique: Multiple axial images of the chest, abdomen, and pelvis were obtained following the intrav enous administration of 100 mL Isovue-300. Oral contrast was administered. Two-dimensional coronal an d sagittal reconstructions were obtained. Findings: CHEST: LUNGS/ PLEURA: No pleural effusion, pneumothorax, focal consolidation. No suspicious pulmonary nodule or mass. AIRWAY: Patent and unremarkable.. HEART: Size within normal limits.No pericardial effusion.. MEDIASTINUM: No evidence of adenopathy. VASCULATURE: No aortic aneurysm. MUSCULOSKELETAL: No acute osseous abnormalities. No aggressive osseous lesion. SOFT TISSUES/LYMPH NODES: Unremarkable. LOWER NECK: No significant findings. ABDOMEN: ABDOMEN LIVER: Diffusely hypoattenuating parenchyma. No focal lesion identified. GALLBLADDER AND BILE DUCTS: The gallbladder is surgically absent. Pneumobilia redemonstrated. No bili ruiz ductal dilatation. PANCREAS: Unremarkable. SPLEEN: Unremarkable. Incidental splenule within the hilum. ADRENAL GLANDS: Unremarkable. KIDNEYS AND URETERS: No evidence of hydronephrosis or renal calculus. The kidneys enhance symmetrical ly. Contrast is demonstrated within both collecting systems on delayed phase. PELVIS BLADDER: Unremarkable REPRODUCTIVE: Anteverted uterus with cervical nabothian cysts. Somewhat heterogenous appearance of th e endometrium which is poorly evaluated on CT. ABDOMEN & PELVIS STOMACH AND BOWEL: Stomach and duodenum are unremarkable. Postsurgical changes from right hemicolecto my. Enteric contrast reaches the proximal transverse colon. No focal wall thickening or surrounding i nflammatory changes suggest recurrence. Rectal fecaloma measuring up to 8.7 cm without surrounding in flammatory changes. No evidence of bowel obstruction. PERITONEUM: No evidence of pneumoperitoneum or free fluid. VASCULATURE: No evidence of aortic aneurysm. MUSCULOSKELETAL: No acute osseous abnormalities. No aggressive osseous lesion. Postsurgical changes w ith bilateral pedicle screws and rods involving L5-S1. Stable sclerotic focus within the L3 vertebral body likely representing a benign bone wound. LYMPH NODES: No evidence for lymphadenopathy. SOFT TISSUE/ABDOMINAL WALL: Postsurgical changes anterior abdominal wall with scarring. Diastases rec tus. IMPRESSION: 1. Postsurgical changes from right hemicolectomy without evidence for recurrence or metastatic disea se. 2. Rectal fecaloma without evidence for stercoral colitis. 3. Post cholecystectomy with pneumobilia redemonstrated. 4. Somewhat heterogenous appearance of the endometrium which is poorly evaluated on CT. Pelvic ultra sound is recommended. 5. Hepatic steatosis. [facility], , 07/01/2024 12:23 PM
== END | disposition home or self-care (01) ==
LOC: RADCTMAIN 09:42
PROVIDERS: ATTEND Internal Medicine Hematology & Oncology
DX: C18.2 Malignant neoplasm of ascending colon (principal); K76.0 Fatty (change of) liver, not elsewhere classified; Z90.49 Acquired absence of other specified parts of digestive tract
CPT/HCPCS: 82565; 84520; 71260; 74177; 36415; Q9967

== ENCOUNTER 2024-09-02 11:20 | Observation (INO) | payer OTHER ==
[~2024-09-02 11:20] MED LIST: METOCLOPRAMIDE 5 MG/ML 2 ML VIAL IVP PRN
[2024-09-02] MEDS: LIDOCAINE 1% (10MG/ML) FOR IV START INTRADERMA PRN (11:55)
[2024-09-02] MEDS: IV FLUID CONTINUATION 1,000 ML IV ONE (11:55)
[2024-09-02] MEDS: LACTATED RINGERS 1,000 ML IV SCH ×2 (11:55→17:48)
[2024-09-02] MEDS: ACETAMINOPHEN TAB 500 MG TAB PO PRN (12:10)
[2024-09-02] MEDS: DEXAMETHASONE SOD PHOSPHATE 4 MG/ML 1 ML VIAL IV ONE (12:11)
[2024-09-02] MEDS: ONDANSETRON 4 MG/2 ML VIAL IVP ONE (12:11)
[2024-09-02] MEDS: MIDAZOLAM 2 MG/2 ML VIAL IV ONE (12:19)
[2024-09-02 12:20] LABS: Basophils % (A) 0 %; Eosinophils # (A) 0.1 k/uL (0-0.7); Eosinophils % (A) 2 %; HGB 11.4 gm/dL (11.4-16.0); Hypochromasia Slight; Lymphocytes % (A) 19 %; MCH 26.4 pg (25.0-35.0); MCHC 31.7 g/dL (31.0-37.0); MCV 83.3 fL (80.0-100.0); Mean Platelet Volume 8.7; Monocytes # (A) 0.5 k/uL (0-1.0); Monocytes % (A) 10 %; Neutrophils # (A) 3.4 k/uL (1.3-7.7); Neutrophils % (A) 66 %; Platelet Count 205 k/uL (150-450); RBC 4.32 m/uL (3.80-5.40); RDW 15.6 % (11.5-15.5); WBC 5.2 k/uL (3.8-10.6)
[2024-09-02] MEDS: HEPARIN SODIUM,PORCINE 5,000 UNIT/ML 1 ML VIAL SQ PRN (12:30)
--- NOTE | 2024-09-02 12:30 | P.ANPRN ---
Procedure Note - Anesthesia - Nerve Block Performed Bilateral Erector Spinae Single Time Out Performed: Yes Date of Procedure: 09/02/24 Procedure Start Time: : Procedure Stop Time: :24 Location of Patient: PreOp Indication: Acute Post-Operative Pain, Analgesia, Requested by Surgeon Sedation Type: Sedate with meaningful contact maintained Preparation: Sterile Prep Position: Prone Catheter: None Needle Types: Pajunk Needle Gauge: 21 Ultrasound used to visualize needle placement: Yes Ultrasound used to observe medication spread: Yes Injectate: 0.5% Ropivacaine (see comment for volume) (Ropiv 20ml+Decadron 4mg, [id number] level--Each side.) Blood Aspirated: No Pain Paresthesia on Injection Noted: No Resistance on Injection: Normal Image Stored and Saved: Yes Events: Uneventful and Well Tolerated
[2024-09-02] MEDS: LIDOCAINE 2%-EPI 1:100,000 20 ML VIAL SQ ONE (12:59)
--- NOTE | 2024-09-02 14:21 | P.OP ---
Date of Procedure: 09/02/24 Preoperative Diagnosis: Incisional hernia Postoperative Diagnosis: Incisional hernia Procedure(s) Performed: Laparoscopic lysis of adhesions Open repair of incisional hernia with mesh Transversus abdominis plane block Anesthesia: BRAD Surgeon: Augustine Lawson Estimated Blood Loss (ml): 50 Pathology: none sent Condition: stable Disposition: PACU Operative Findings: Large hernia 12 x 10 cm diameter Description of Procedure: The patient was placed on the operating table in the supine position. He received general anesthesia. His abdomen was prepped and draped usual fashion. Using a 5 mm optical trocar under direct visualization the peritoneal cavity was entered in the left upper quadrant. The abdomen was then insufflated. The laparoscope was placed back into the perineal cavity. Next a 8 mm robotic trocar was placed in the left lower quadrant and a 12 mm robotic trocar was placed in the left lateral position. The original 5 mm trocar was exchanged for a 8 mm robotic trocar. A four-quadrant transversus abdominis plane block was then performed with 1% local Xylocaine. The patient's placed in the left side up position. And the patient was docked to the robot. The incisional hernia was visualized. There were large amount of adhesions that were seen in the hernia. These were lysed the omentum was brought back into the peritoneal cavity. The hernia defect was very large. Due to the size of the hernia defect the procedure was converted to an open procedure. The trocars were withdrawn. The skin was incised on the midline scar. And then use electrocautery and sharp dissection the subcu tissues were divided off of the level of fascia and hernia sac. The fascia was then reapproximated using 0 Ethibond [id number] sutures. And then a #1 STRATAFIX suture was used to buttress this repair. A piece of Prolene mesh was cut to an appropriate size and secured with secure strap tacker. A BEVERLY drain was placed over top of the repair and brought through separate stab incision. Jenae's fascia closed with 0 Vicryl. Skin was closed ivelisse. Patient tolerated well. He was sent to recovery in stable condition.
[2024-09-02] MEDS: HYDROmorphone 0.5 MG/0.5 ML SYRINGE IVP PRN (14:47)
[2024-09-02] MEDS: diphenhydrAMINE 50 MG/ML 1 ML VIAL IVP STA (15:03)
[2024-09-02] MEDS ORDERED: NALOXONE 0.4 MG/ML 1 ML VIAL IV PRN (17:25)
[2024-09-02] MEDS ORDERED: ONDANSETRON 4 MG/2 ML VIAL IVP PRN (17:25)
[2024-09-02] MEDS ORDERED: ACETAMINOPHEN TAB 325 MG TAB PO PRN (17:25)
[2024-09-02] MEDS ORDERED: METOCLOPRAMIDE 5 MG/ML 2 ML VIAL IVP PRN (17:25)
[2024-09-02] MEDS: KETOROLAC 15 MG/ML 1 ML VIAL IVP SCH (17:49)
[2024-09-02] MEDS ORDERED: NYSTATIN 100,000UNIT/GM CREAM 30 GM TUBE TOPICAL PRN (18:38)
[2024-09-02] MEDS ORDERED: ALBUTEROL HFA INHALER INHALATION PRN (18:38)
[2024-09-02] MEDS: QUEtiapine 50 MG TAB PO SCH (22:06)
[2024-09-02] MEDS: HYDROcodone/APAP 5-325MG 1 EACH TAB PO PRN (22:06)
[2024-09-02] MEDS: FAMOTIDINE 20 MG TAB PO SCH (22:07)
[2024-09-02] MEDS: hydrOXYzine HCL 25 MG TAB PO SCH (22:07)
[2024-09-03] MEDS: ENOXAPARIN 40 MG/0.4 ML SYRINGE SQ SCH (09:01)
[2024-09-03] MEDS: lamoTRIgine 25 MG TAB PO SCH (09:49)
--- NOTE | 2024-09-03 10:48 | P.CONS ---
History of Present Illness - Reason for Consult Consult date: 09/03/24 Medical management Requesting physician: Augustine Lawson - Chief Complaint Incisional hernia status post laparoscopic repair - History of Present Illness This is a 49-year-old female with past medical history significant for multiple abdominal surgeries-bowel resection , cholecystectomy, right colectomy 11/09, open incisional hernia repair, back surgery 2013 recently completed last chemo 06/11 related to colon cancer, asthma, gastroesophageal reflux disease, anxiety, bipolar, depression status post laparoscopic lysis of adhesions, open repair of incisional hernia with mesh. Tolerated procedure well. Pain controlled on current regimen. denies chest pain, palpitations or shortness of breath. Maintaining O2 sats in the low 90s on room air. Incentive spirometer at bedside. Blood pressure soft, maintained on IV fluid hydration with LR at 125 mL an hour. Passing flatus. Tolerating regular diet with no nausea or vomiting. Afebrile normal WBC. Review of Systems ROS Statement: Those systems with pertinent positive or pertinent negative responses have been documented in the HPI. ROS Other: All systems not noted in ROS Statement are negative. Past Medical History Past Medical History: Asthma, Cancer, GERD/Reflux Additional Past Medical History / Comment(s): Colon cancer diagnosis Sep 2023- had surg. & 3 rounds of chemo- last chemo 05/2024 History of Any Multi-Drug Resistant Organisms: MRSA, None Reported Year Discovered:: 05/31/16 MDRO Source:: leg Past Surgical History: Back Surgery, Bowel Resection, Section, Cholecystectomy Additional Past Surgical History / Comment(s): back surgery 2013, C/S x3, right colectomy October 2023, open incisional hernia repair. Past Anesthesia/Blood Transfusion Reactions: No Reported Reaction Past Psychological History: Anxiety, Bipolar, Depression Smoking Status: Never smoker Past Alcohol Use History: None Reported Past Drug Use History: None Reported - Past Family History Father Family Medical History: No Reported History Medications and Allergies Home Medications Medication Instructions Recorded Confirmed Type Nystatin 100,000Unit/gm Cream 1 applic TOPICAL BID PRN 10/20/23 08/27/24 History [Mycostatin Cream] QUEtiapine [SEROquel] 50 - 100 mg PO HS 10/20/23 08/27/24 History hydrOXYzine HCL [Atarax] 25 mg PO TID 10/20/23 08/27/24 History lamoTRIgine [lamoTRIgine ER] 100 mg PO DAILY 10/20/23 08/27/24 History Famotidine [Pepcid] 20 mg PO BID #60 tab 10/24/23 08/27/24 Rx Albuterol Sulfate [Ventolin HFA] 1 puff INHALATION Q4H PRN 02/13/24 08/27/24 History Acetaminophen Tab [Tylenol] 650 mg PO Q6H #30 tab 09/02/24 Rx Docusate [Colace] 100 mg PO BID #20 capsule 09/02/24 Rx Ibuprofen [Motrin] 600 mg PO Q6HR PRN #40 tab 09/02/24 Rx oxyCODONE HCL [OxyIR] 5 mg PO Q6H PRN 3 Days #10 tab 09/02/24 Rx Allergies Allergy/AdvReac Type Severity Reaction Status Date / Time No Known Allergies Allergy Verified 09/02/24 13:16 Physical Exam Vitals: Vital Signs Temp Pulse Pulse Pulse Resp BP BP 09/03/24 07:05 98.0 F 75 18 98/63 09/03/24 00:26 98.4 F 86 16 112/69 09/02/24 19:35 98.0 F 78 20 121/75 09/02/24 16:51 97.7 F 66 17 128/79 09/02/24 16:08 64 16 129/66 09/02/24 15:53 61 16 125/66 09/02/24 15:46 62 16 128/61 09/02/24 15:30 59 L 16 120/69 09/02/24 15:15 63 16 135/76 09/02/24 15:00 71 16 119/73 09/02/24 14:46 61 16 123/69 09/02/24 14:32 80 16 124/66 09/02/24 14:13 97.6 F 75 13 133/66 09/02/24 12:30 77 16 113/70 09/02/24 11:55 97.6 F 81 16 119/76 Pulse Ox 09/03/24 07:05 93 L 09/03/24 00:26 91 L 09/02/24 19:35 92 L 09/02/24 16:51 95 09/02/24 16:08 91 L 09/02/24 15:53 92 L 09/02/24 15:46 96 09/02/24 15:30 96 09/02/24 15:15 96 09/02/24 15:00 96 09/02/24 14:46 96 09/02/24 14:32 96 09/02/24 14:13 96 09/02/24 12:30 95 09/02/24 11:55 95 Intake and Output 09/02/24 09/03/24 09/03/24 22:59 06:59 14:59 Intake Total 0 540 Output Total 80 35 Balance -80 540 -35 Intake: IV 0 Oral 540 Output: Drainage 80 35 Left Lower Abdomen 80 35 Other: # Voids 2 Weight 103.4 kg GENERAL: Well-developed, well-nourished female. NAD HEENT: Atraumatic, normocephalic.Pupils equal round and reactive to light, extraocular movements intact, sclera anicteric, conjunctiva are normal. Oral mucosa dry. NECK: Normal range of motion, supple without lymphadenopathy or JVD, no thy romegaly LUNGS: Unlabored, equal air entry, breath sounds clear to auscultation bilaterally and equal. No wheezes rales or rhonchi. HEART: Regular rate and rhythm without murmurs, rubs or gallops.S1S2 Normal ABDOMEN: Soft, status post surgery, midline dressing, clean dry and intact. Abdominal binder, BEVERLY present with sanguinous drainage. EXTREMITIES: Normal range of motion, no pitting or edema. No clubbing or cyanosis. NEUROLOGICAL: Cranial nerves II through XII grossly intact. PSYCH: Normal mood, normal affect. SKIN: Warm, Dry, normal turgor, no rashes noted. Results CBC & Chem 7: 09/02/24 12:13 Labs: Abnormal Lab Results - Last 24 Hours (Table) 09/02/24 Range/Units 12:13 RDW 15.6 H (11.5-15.5) % Assessment and Plan Assessment: Incisional hernia status post laparoscopic lysis of adhesions, open repair of incisional hernia with mesh. History of right colectomy and partial omentectomy 11/09 secondary to obstructive right colon mass. Pathology reported positive for invasive moderately differentiated colonic carcinoma invading into pericolonic adipose tissue. Margins negative. 28 lymph nodes negative for metastasis with 1 mesenteric tumor deposit. Completed chemo 06/11 Bipolar disorder Asthma, mild intermittent, stable Morbid obesity, BMI 36 Plan: Continue on current medication regimen ,monitoring and symptomatic treatment. IV fluid hydration. Aggressive pulmonary toileting with incentive spirometer reinforced. Pain management/DVT prophylaxis as per general surgery. Home meds have been reviewed and resumed accordingly. Pepcid in place for GI prophylaxis. Increase ambulation as tolerated. The impression and plan of care has been dictated as directed. : I performed a history and examination of this patient, discussed the same with the dictator. I agree with the dictator's note ,documented as a scribe. Any additional findings or plans will be noted.
--- NOTE | 2024-09-03 14:32 | P.PN ---
Subjective Progress Note Date: 09/03/24 SURGICAL PROGRESS NOTE CHIEF COMPLAINT: Incisional hernia HISTORY OF PRESENT ILLNESS: Patient is postop day #1 status post laparoscopic lysis of adhesions, open repair of incisional hernia with mesh. Patient is still requiring IV pain medication. She does report the pain is controlled. Denies any nausea or vomiting. She denies any flatus. She is urinating without difficulty. She did get up to ambulate to the bathroom. Afebrile. WBC 5.2 Hgb 11.4. BEVERLY drain 80 mL output through the night and 35 this morning PHYSICAL EXAM: VITAL SIGNS: Reviewed. GENERAL: Well-developed in no acute distress. ABDOMEN: Soft. Nondistended. Incisional dressing clean dry and intact. BEVERLY drain serosanguineous drainage. NEUROLOGIC: Alert and oriented. Cranial nerves II through XII grossly intact. ASSESSMENT: 1. Incisional hernia PLAN: -Continue pain management -Change incisional dressing -Encourage incentive spirometer use -Mild hypotension 98/63 this AM. Continue IV fluids. Nursing staff to repeat blood pressure. -Anticipate discharge tomorrow -DVT prophylaxis Lovenox and GI prophylaxis Pepcid Physician Server Engineer note has been reviewed by physician. Signing provider agrees with the documented findings, assessment, and plan of care. Objective - Vital Signs Vital signs: Vital Signs Temp 98.0 F 09/03/24 07:05 Pulse 75 09/03/24 07:05 Resp 18 09/03/24 07:05 BP 98/63 09/03/24 07:05 Pulse Ox 93 L 09/03/24 07:05 FiO2 Intake & Output 09/02/24 09/03/24 09/03/24 18:59 06:59 18:59 Intake Total 950 540 Output Total 50 80 45 Balance 900 460 -45 Weight 103.4 kg Intake: IV 950 Oral 540 Output: Drainage 80 45 Left Lower Abdomen 80 45 Estimated Blood Loss 50 Other: # Voids 2 - Labs CBC & Chem 7: 09/02/24 12:13
[2024-09-04 08:04] VITALS: BP 108/74; PULSE 70; RESP 16; TEMP 97.4
--- NOTE | 2024-09-04 12:26 | P.DS ---
Providers Date of admission: 09/02/24 14:09 Expected date of discharge: 09/04/24 Attending physician: Augustine Lawson Consults: 09/02/24 17:25 Consult Physician Routine Consulting Provider: Carlito Gutierres Jr Consult Reason/Comments: Management Do you want consulting provider notified?: Yes Primary care physician: Carlito Gutierres [facility] Course: Discharge diagnosis 1. Incisional hernia Hospital course This is a 49-year-old female with a known incisional hernia. She is status post laparoscopic lysis of adhesions, open repair of incisional hernia with mesh. Patient's pain is controlled. She is tolerating diet. She is having flatus. She has been up and ambulating. She is afebrile. She is stable for discharge. Please refer to chart for any further details. Physician Caser Up note has been reviewed by physician. Signing provider agrees with the documented findings, assessment, and plan of care. Patient Condition at Discharge: Stable Plan - Discharge Summary Discharge Rx Participant: No New Discharge Prescriptions: New oxyCODONE HCL [OxyIR] 5 mg PO Q6H PRN 3 Days #10 tab PRN Reason: Pain Docusate [Colace] 100 mg PO BID #20 capsule Ibuprofen [Motrin] 600 mg PO Q6HR PRN #40 tab PRN Reason: Pain Acetaminophen Tab [Tylenol] 650 mg PO Q6H #30 tab Continue hydrOXYzine HCL [Atarax] 25 mg PO TID lamoTRIgine [lamoTRIgine ER] 100 mg PO DAILY Albuterol Sulfate [Ventolin HFA] 1 puff INHALATION Q4H PRN PRN Reason: Wheezing QUEtiapine [SEROquel] 50 - 100 mg PO HS Nystatin 100,000Unit/gm Cream [Mycostatin Cream] 1 applic TOPICAL BID PRN PRN Reason: Rash Famotidine [Pepcid] 20 mg PO BID #60 tab Discharge Medication List Nystatin 100,000Unit/gm Cream [Mycostatin Cream] 1 applic TOPICAL BID PRN 10/20/23 [History] QUEtiapine [SEROquel] 50 - 100 mg PO HS 10/20/23 [History] hydrOXYzine HCL [Atarax] 25 mg PO TID 10/20/23 [History] lamoTRIgine [lamoTRIgine ER] 100 mg PO DAILY 10/20/23 [History] Famotidine [Pepcid] 20 mg PO BID #60 tab 10/24/23 [Rx] Albuterol Sulfate [Ventolin HFA] 1 puff INHALATION Q4H PRN 02/13/24 [History] Acetaminophen Tab [Tylenol] 650 mg PO Q6H #30 tab 09/02/24 [Rx] Docusate [Colace] 100 mg PO BID #20 capsule 09/02/24 [Rx] Ibuprofen [Motrin] 600 mg PO Q6HR PRN #40 tab 09/02/24 [Rx] oxyCODONE HCL [OxyIR] 5 mg PO Q6H PRN 3 Days #10 tab 09/02/24 [Rx] Follow up Appointment(s)/Referral(s): Augustine Lawson MD [STAFF PHYSICIAN] - 09/10/24 2:30 pm Patient Instructions/Handouts: Incisional Hernia (DC) Activity/Diet/Wound Care/Special Instructions: No driving while taking [place] No lifting over 10 pounds Shower daily. No soaking or tub baths for 2 weeks Very light activity until you are reevaluated at your follow up appointment with your surgeon Keep a log of BEVERLY drain output and bring with you to your follow-up appointment Milk/strip drains 2-3 times a day Discharge Disposition: HOME SELF-CARE
== END 2024-09-04 10:18 | disposition home or self-care (01) ==
LOC: OR 11:20 → 4SSUR 14:09 → OR 14:09 → 4SSUR 16:16
PROVIDERS: ADMIT Surgery; ATTEND Surgery
DX: K43.2 Incisional hernia without obstruction or gangrene (principal); K66.0 Peritoneal adhesions (postprocedural) (postinfection); Z53.31 Laparoscopic surgical procedure converted to open procedure; J45.20 Mild intermittent asthma, uncomplicated; F41.9 Anxiety disorder, unspecified; F31.9 Bipolar disorder, unspecified; E66.01 Morbid (severe) obesity due to excess calories; Z68.36 Body mass index [BMI] 36.0-36.9, adult; Z85.038 Personal history of other malignant neoplasm of large intestine; Z90.49 Acquired absence of other specified parts of digestive tract; Z92.21 Personal history of antineoplastic chemotherapy; Z98.890 Other specified postprocedural states; Z98.891 History of uterine scar from previous surgery
CPT/HCPCS: 96372 ×2; 81025; 64999; 85025; 49595; G0378 ×2; C1781; J2250; J1200; J1644; J1100; J2405; J1650 ×2; J1885 ×3; J1171

== ENCOUNTER 2024-10-15 05:57 | Day surgery (SDC) | payer OTHER ==
[2024-10-12 13:57] VITALS: BMI 34.4
[~2024-10-15 05:57] MED LIST changes: -METOCLOPRAMIDE 5 MG/ML 2 ML VIAL IVP PRN; +Pre Op ABX Message 1 EACH MISC MISCELLANE ONE
[2024-10-15] MEDS ORDERED: MIDAZOLAM 2 MG/2 ML VIAL IV PRN (06:02)
[2024-10-15] MEDS ORDERED: LACTATED RINGERS 1,000 ML IV SCH (06:02)
[2024-10-15] MEDS ORDERED: HYDROmorphone 0.5 MG/0.5 ML SYRINGE IVP PRN (06:02)
[2024-10-15] MEDS ORDERED: fentaNYL (PF) 50 MCG/ML 2 ML AMP IVP PRN (06:02)
[2024-10-15] MEDS ORDERED: LIDOCAINE 1% (10MG/ML) FOR IV START INTRADERMA PRN (06:02)
[2024-10-15] MEDS: ONDANSETRON 4 MG/2 ML VIAL IVP ONE (06:46)
[2024-10-15] MEDS: DEXAMETHASONE SOD PHOSPHATE 4 MG/ML 1 ML VIAL IV ONE (06:46)
[2024-10-15] MEDS: IV FLUID CONTINUATION 1,000 ML IV ONE ×4 (06:55→07:26)
[2024-10-15] MEDS ORDERED: MIDAZOLAM 2 MG/2 ML VIAL ONE (07:25)
[2024-10-15] MEDS ORDERED: SUCCINYLCHOLINE CHLORIDE 200 MG/10 ML VIAL IV ONE (07:25)
[2024-10-15] MEDS ORDERED: LIDOCAINE 1% INJ 10MG/ML (20 ML MDV) ONE (07:25)
[2024-10-15] MEDS ORDERED: KETOROLAC 15 MG/ML 1 ML VIAL ONE (07:25)
[2024-10-15] MEDS ORDERED: PROPOFOL 10 MG/ML 20 ML VIAL IV ONE (07:25)
[2024-10-15] MEDS ORDERED: fentaNYL (PF) 50 MCG/ML 2 ML AMP ONE (07:25)
[2024-10-15] MEDS ORDERED: ALBUTEROL HFA INHALER INHALATION ONE (07:25)
[2024-10-15] MEDS: LACTATED RINGERS 1,000 ML IV ONE (07:30)
--- NOTE | 2024-10-15 08:06 | P.OP ---
Date of Procedure: 10/15/24 Preoperative Diagnosis: Heavy menstrual bleeding, menorrhagia, enlarged uterus Postoperative Diagnosis: Same Procedure(s) Performed: Uroscopy, dilation and curettage Anesthesia: BRAD Surgeon: Lizette Villa Estimated Blood Loss (ml): 5 IV fluids (ml): 300 Urine output (ml): 100 Pathology: other (Dani curettings) Condition: stable Disposition: PACU Indications for Procedure: Heavy menstrual bleeding Operative Findings: Proliferative endometrium, enlarged uterus at 11 cm Description of Procedure: Patient was taken back to the operating suite after informed consent was o btained. General anesthesia was obtained by the anesthesia department. She was prepped and draped in normal sterile fashion in the dorsolithotomy position. A red rubber catheter was then used to drain the bladder of clear yellow urine. A weighted speculum was placed in the posterior vaginal vault and the anterior lip of the cervix was visualized. The anterior lip of the cervix was grasped with a single-tooth tenaculum and the endocervical canal was then serially dilated. Hysteroscope was placed through the cervix and toward the endometrial cavity. An intact cavity was appreciated with the proliferative endometrium. Hysteroscope was removed and a sharp curettage was then performed until gritty texture was noted in all 4 quadrants of the endometrial cavity. The specimen was then sent to pathology for analysis. The single-tooth tenaculum was taken off of the anterior lip of the cervix, a small amount of bleeding was noted therefore a silver nitrate stick was used to obtain hemostasis. All instruments removed from the patient's vaginal vault. All counts were noted be correct x 2. Patient tolerated procedure well and was taken to the recovery room awake in stable condition.
[2024-10-15 08:07] VITALS: TEMP 98.1
[2024-10-15 08:39] VITALS: RESP 16
[2024-10-15 09:33] VITALS: BP 128/84; PULSE 65
== END 2024-10-15 09:48 | disposition home or self-care (01) ==
LOC: OR 05:57
PROVIDERS: ATTEND Obstetrics & Gynecology Obstetrics
DX: N92.0 Excessive and frequent menstruation with regular cycle (principal); N85.2 Hypertrophy of uterus; N83.292 Other ovarian cyst, left side; N83.291 Other ovarian cyst, right side; J45.909 Unspecified asthma, uncomplicated; F41.9 Anxiety disorder, unspecified; F31.9 Bipolar disorder, unspecified; K21.9 Gastro-esophageal reflux disease without esophagitis; Z79.899 Other long term (current) drug therapy; Z85.038 Personal history of other malignant neoplasm of large intestine
CPT/HCPCS: 58558; 81025; 88305; J2250; J0330; J1100; J2405; J2003; J3010; J1885; J2704

== ENCOUNTER → 2024-12-28 | Outpatient (CLI) | payer OTHER ==
--- NOTE | 2024-12-28 13:25 | CT ---
EXAMINATION TYPE: CT ChestAbdPelvis w con DATE OF EXAM: 12/28/2024 12:29 PM COMPARISON: 10/07/2024 and 07/01/2024 CLINICAL INDICATION: Female, 49 years old with history of C18.2 MALIGNANT NEOPLASM OF ASCENDING COLON ; PHH, HX OF COLON CA Technique: CT ChestAbdPelvis w with IV contrast. Coronal and sagittal reconstructions were obtained. Contrast used:100ml mL of Isovue 300 with IV Contrast, CT DLP: 1843.60 mGycm, Automated exposure control for dose reduction was used. Findings: CHEST: The heart is normal size without pericardial effusion. Aorta normal caliber within the charge vessel branching anatomy. No thoracic lymphadenopathy by CT size criteria. Mild emphysematous change. Suggestion of some mosaic attenuation which can be seen with small airways disease. A tiny 3 mm lingular pulmonary nodule, axial image 29 remains unchanged. No consolidation o r pleural effusion. ABDOMEN: Low attenuation of the hepatic parenchyma. Pneumobilia redemonstrated. Portal venous system is patent . Gallbladder surgically absent. Adrenal glands, kidneys, spleen with hilar splenule, and pancreas within normal limits. Post surgical change of previous ventral abdominal wall mesh repair. There are umbilical nodular thic kening at the site of previous fluid collection. Findings suggest interval scar tissue formation. No dilated small bowel, free fluid, or free air. No mesenteric or retroperitoneal lymphadenopathy. Patient status post partial right hemicolectomy with ileocolonic anastomosis at the upper ascending c olon. Oral contrast progressed to the lower descending colon. No pericolonic inflammatory change. Pelvis: Bladder urine distended. The uterus appears anteverted but retroflexed. Numerous cervical nabothian cysts measuring up to 1.9 cm. Interval placement of an IUD. This appears to be malpositioned at the level of the cervix and low er uterine segment. The side arms may extend into the anterior myometrium. The previous 6.4 cm cyst of the left ovary has resolved. Smaller follicles measuring up to 2.3 cm are now noted on the left. Right ovary is visualized with a 2.1 cm dominant follicle or functional cyst. A couple tiny pelvic phleboliths. No abnormal fluid collection in the pelvis or pelvic lymphadenopath y. Bones: Patient status post L5-S1 posterior and interbody lumbar fusion. No osseous destructive process. IMPRESSION: 1. Patient status post partial right hemicolectomy. No evidence for local recurrence or metastatic di sease. 2. Previous ventral abdominal wall mesh repair. There is soft tissue density now present at the site of previous small fluid collection, favored to represent scar tissue. 3. Interval placement of an IUD. This appears to be malpositioned within the cervix and lower uterine segment. Note that the uterus is anteverted but retroflexed. In addition, the side arms of the IUD m ay be located within the anterior myometrium. 4. Interval resolution of the previous 6.4 cm left ovarian cyst. Smaller follicular change is now pre sent on either side measuring up to 2.3 cm. 5. Redemonstrated hepatic steatosis and pneumobilia. [facility], , 12/28/2024 1:23 PM
== END | disposition home or self-care (01) ==
LOC: RADCTMAIN 10:08
PROVIDERS: ATTEND Internal Medicine Hematology & Oncology
DX: C18.2 Malignant neoplasm of ascending colon (principal); Z71.3 Dietary counseling and surveillance; K76.0 Fatty (change of) liver, not elsewhere classified; K83.8 Other specified diseases of biliary tract; Z98.890 Other specified postprocedural states
CPT/HCPCS: 71260; 74177; Q9967

== ENCOUNTER 2025-01-07 08:12 | Day surgery (SDC) | payer OTHER ==
[~2025-01-07 08:12] MED LIST changes: +LIDOCAINE 1% (10MG/ML) FOR IV START INTRADERMA PRN; -Pre Op ABX Message 1 EACH MISC MISCELLANE ONE
[2025-01-07] MEDS: IV FLUID CONTINUATION 1,000 ML IV ONE (08:45)
[2025-01-07] MEDS: LACTATED RINGERS 1,000 ML IV SCH (08:45)
[2025-01-07 08:52] VITALS: TEMP 97.3
[2025-01-07] MEDS ORDERED: PROPOFOL 10 MG/ML 20 ML VIAL IV ONE (09:05)
--- NOTE | 2025-01-07 09:08 | P.GSHP ---
History of Present Illness H&P Date: 01/07/25 Chief Complaint: History of colon cancer This is a 49-year-old female who presents today for colonoscopy. Patient has previous history of colon cancer. Past Medical History Past Medical History: Asthma, Cancer, GERD/Reflux Additional Past Medical History / Comment(s): Colon cancer Sep 2023-surg & chemo History of Any Multi-Drug Resistant Organisms: MRSA Date of last positivie culture/infection: 05/31/16 MDRO Source:: right leg Past Surgical History: Back Surgery, Bowel Resection, Section, Cholec ystectomy, Hernia Repair Additional Past Surgical History / Comment(s): back surgery 2013, C/S x3, right colectomy October 2023, open incisional hernia repair, D&C Past Anesthesia/Blood Transfusion Reactions: No Reported Reaction Smoking Status: Never smoker - Past Family History Father Family Medical History: No Reported History Medications and Allergies Home Medications Medication Instructions Recorded Confirmed Type QUEtiapine [SEROquel] 50 - 100 mg PO HS 10/20/23 01/07/25 History lamoTRIgine [lamoTRIgine ER] 100 mg PO DAILY 10/20/23 01/07/25 History Famotidine [Pepcid] 20 mg PO BID #60 tab 10/24/23 01/07/25 Rx Albuterol Sulfate [Ventolin HFA] 1 puff INHALATION Q4H PRN 02/13/24 01/07/25 History Acetaminophen Tab [Tylenol] 650 mg PO Q6H PRN 01/05/25 01/07/25 History Allergies Allergy/AdvReac Type Severity Reaction Status Date / Time No Known Allergies Allergy Verified 01/07/25 08:41 Surgical - Exam Vital Signs Temp Pulse Resp BP Pulse Ox 97.3 F L 69 18 130/80 96 01/07/25 08:45 01/07/25 08:45 01/07/25 08:45 01/07/25 08:45 01/07/25 08:45 - General well developed, well nourished, no distress - Eyes PERRL - ENT normal pinna - Neck no masses - Respiratory normal expansion - Cardiovascular Rhythm: regular - Abdomen Abdomen: soft, non tender Assessment and Plan Assessment: History of colon cancer. Will perform colonoscopy.
--- NOTE | 2025-01-07 09:18 | P.OP ---
Date of Procedure: 01/07/25 Preoperative Diagnosis: History of right colon cancer Postoperative Diagnosis: Normal colonoscopy status post right colectomy Procedure(s) Performed: Colonoscopy Anesthesia: MAC Surgeon: Augustine Lawson Pathology: none sent Condition: stable Disposition: PACU Description of Procedure: The patient was placed on the endoscopy table in the lateral position. She received IV sedation. Digital rectal exam was performed. This revealed no abnormalities. The flexible colonoscope was then placed patient anus and passed throughout the entire colon. The ileocolonic anastomosis was visualized. The transverse colon appeared normal. The descending colon appeared normal. The sigmoid colon appeared normal. Rectum appeared normal. Scope was withdrawn to the patient. There is no evidence of any recurrent colon cancer.
[2025-01-07 09:36] VITALS: BP 107/68; PULSE 68; RESP 16
== END 2025-01-07 09:50 | disposition home or self-care (01) ==
LOC: ORWHC2ENDO 08:12
PROVIDERS: ATTEND Surgery
DX: C18.9 Malignant neoplasm of colon, unspecified (principal); J45.20 Mild intermittent asthma, uncomplicated; K21.9 Gastro-esophageal reflux disease without esophagitis; F31.9 Bipolar disorder, unspecified; F41.9 Anxiety disorder, unspecified; Z79.899 Other long term (current) drug therapy; Z85.038 Personal history of other malignant neoplasm of large intestine; Z90.49 Acquired absence of other specified parts of digestive tract; Z86.14 Personal history of Methicillin resistant Staphylococcus aureus infection
CPT/HCPCS: 45378; 81025; J2704